=== PATIENT | male | born 1960 | race Caucasian/White ===

== ENCOUNTER 2020-02-24 12:03 | Inpatient (IN) | payer BC ==
[~2020-02-24] VITALS: Ht 170.2 cm; Wt 138.7 kg
[~2020-02-24 12:03] MED LIST: LIDOCAINE PF 2%, 5ML ONE
--- NOTE | 2020-02-24 12:19 | NUR ---
PT XIANG IN BY EMS FOR NON HELAING DIABTETIC FOOT WOUND. PT STATES HE HAD A GLF FALL 2 MONTHS AGO AND CUT HIS FOOT AND THE WOUND HASNT HEALED. ON TUESDAY WENT TO [facility] AND WAS TOLD TO FOLLOW UP WITH WOUND CARE, WHICH HE HASNT DONE. PT WAS ALSO GIVEN KEFLEX AND DOXICLYCLINE. PT STATES THE WOUND HAS BEEN DRIANING PUS AND WAS HURTING TODAY SO HE CALLED 911. EKG COMPLETE - AFIB. PT IS RESTING IN [facility]. CONNECTED TO MONITORING EQUIPMENT
[2020-02-24] MEDS ORDERED: PIPERACILLIN/TAZO/PMX 3.375GM 50 ML ONE (12:23)
[2020-02-24] MEDS ORDERED: METOPROLOL 1 MG/ML, 5ML ONE (12:23)
[2020-02-24] MEDS ORDERED: SODIUM CHLORIDE FLUSH 10ML SYR IVF ONE (12:30)
[2020-02-24] MEDS ORDERED: METOPROLOL 1 MG/ML, 5ML IVPush ONE (12:30)
[2020-02-24] MEDS ORDERED: PIPERACILLIN/TAZO/PMX 3.375GM 50 ML IVPB ONE (12:30)
--- NOTE | 2020-02-24 12:49 | NUR ---
pt medicated per emar. abx infusing after bc x 2. pt tolerated well.
[2020-02-24 13:04] LABS: BASOPHILS # (AUTO) 0.05 x10^3/uL (0-0.1); BASOPHILS % (AUTO) 1 % (0-1); EOSINOPHILS # (AUTO) 0.77 x10^3/uL (0-0.4); EOSINOPHILS % (AUTO) 7 % (1-7); LYMPHOCYTES # (AUTO) 1.04 x10^3/uL (1-3.4); LYMPHOCYTES % (AUTO) 10 % (22-44); MD NO; MEAN CORPUSCULAR HEMOGLOBIN 29.8 pg (27.5-34.5); MEAN CORPUSCULAR HGB CONC 33.1 g/dL (33.2-36.2); MEAN PLATELET VOLUME 7.9 fL (7.4-10.4); MONOCYTES # (AUTO) 0.55 x10^3/uL (0.2-0.8); MONOCYTES % (AUTO) 5 % (2-9); NEUTROPHILS # (AUTO) 8.03 x10^3/uL (1.8-6.8); NEUTROPHILS % (AUTO) 77 % (42-75); PLATELET COUNT 281 x10^3/uL (130-400); RED BLOOD COUNT 4.22 x10^6/uL (4.38-5.82)
[2020-02-24] MEDS ORDERED: LISI-170 PO (13:07)
[2020-02-24] MEDS ORDERED: METO25TA35 PO (13:07)
[2020-02-24] MEDS ORDERED: LEVO175T5 PO (13:08)
[2020-02-24] MEDS ORDERED: FURO20TA3 PO (13:08)
[2020-02-24] MEDS ORDERED: METF500T17 PO (13:08)
[2020-02-24] MEDS ORDERED: RIVA20TA PO (13:09)
[2020-02-24] MEDS ORDERED: ATOR40TA78 PO (13:09)
[2020-02-24 13:14] LABS: ALANINE AMINOTRANSFERASE 18 U/L (12-78); ALBUMIN 2.9 g/dL (3.4-5.0); ANION GAP 9 mmol/L (5-15); CALCIUM 8.9 mg/dL (8.5-10.1); CHLORIDE 105 mmol/L (98-107); CREATININE 1.08 mg/dL (0.7-1.3)
[2020-02-24 13:24] LABS: ALKALINE PHOSPHATASE 114 U/L (45-117); BILIRUBIN,TOTAL 1.3 mg/dL (0.2-1.0); TOTAL PROTEIN 7.9 g/dL (6.4-8.2)
--- NOTE | 2020-02-24 14:02 | NUR ---
pt resting in [facility]. pt's aox4. resps even and unlabored. bp/spo2 monitors in place. call light within reach.
--- NOTE | 2020-02-24 14:18 | NUR ---
call manager ortho paged @[phone]
--- NOTE | 2020-02-24 14:31 | NUR ---
lien called back @[phone]
--- NOTE | 2020-02-24 15:29 | NUR ---
pt resting in [facility]. pt's aox4. resps even and unlabored. bp/spo2 monitors in place. call light within reach.
[2020-02-24] MEDS ORDERED: ONDANSETRON 2MG/ML, 2ML IVPush PRN (16:00)
[2020-02-24] MEDS: LACTATED RINGERS 1,000 ML IV SCH (16:00)
[2020-02-24] MEDS ORDERED: POLYETHYLENE GLYCOL 17 GM PACKET PO PRN (16:00)
[2020-02-24] MEDS ORDERED: VANCOMYCIN PER PHARMACY MC PRN (16:00)
--- NOTE | 2020-02-24 16:03 | NUR ---
hospitalistobtained culture from wound. this rn walked to lab for wound culture.
--- NOTE | 2020-02-24 16:32 | NUR ---
medication ordered from pharmacy at this time.
--- NOTE | 2020-02-24 16:42 | NUR ---
LR infusing at this time. pt tolerated well.
--- NOTE | 2020-02-24 16:51 | NUR ---
report given to rolando courtney. all questions answered.
[2020-02-24 17:25] VITALS: BP 147/79
[2020-02-24] MEDS ORDERED: VANCOMYCIN 2,500 MG in SODIUM CHLORIDE 0.9% 500 ML IV ONE (18:00)
[2020-02-24] MEDS ORDERED: PHARMACOKINETIC CONSULTATION MC ONE (18:00)
[2020-02-24] MEDS ORDERED: PHARMACOKINETIC MONITORING MC PRN (18:00)
[2020-02-24] MEDS: INSULIN LISPRO 100 UNITS/ML, PEN SQ-INSULIN SCH ×2 (18:06→21:52)
[2020-02-24 19:00] VITALS: BP 114/76
[2020-02-24] MEDS: ATORVASTATIN 40 MG TABLET PO SCH (21:51)
[2020-02-24] MEDS: METOPROLOL TARTRATE 100 MG TAB PO SCH (21:51)
[2020-02-24] MEDS: CEFEPIME 2 GM in DEXTROSE 5% 100 ML IV SCH (22:05)
[2020-02-25] VITALS (11 sets, daily range): BP systolic 103–130; BP diastolic 65–89
[2020-02-25] MEDS: LACTATED RINGERS 1,000 ML IV SCH
[2020-02-25] MEDS: CEFEPIME 2 GM in DEXTROSE 5% 100 ML IV SCH ×3 (05:46→22:04)
[2020-02-25 05:47] LABS: BASOPHILS % (AUTO) 1 % (0-1); EOSINOPHILS # (AUTO) 0.99 x10^3/uL (0-0.4); EOSINOPHILS % (AUTO) 13 % (1-7); LYMPHOCYTES # (AUTO) 1.41 x10^3/uL (1-3.4); LYMPHOCYTES % (AUTO) 18 % (22-44); MD NO; MEAN CORPUSCULAR HEMOGLOBIN 29.9 pg (27.5-34.5); MEAN CORPUSCULAR HGB CONC 33.4 g/dL (33.2-36.2); MEAN PLATELET VOLUME 8.2 fL (7.4-10.4); MONOCYTES # (AUTO) 0.42 x10^3/uL (0.2-0.8); MONOCYTES % (AUTO) 5 % (2-9); NEUTROPHILS # (AUTO) 4.92 x10^3/uL (1.8-6.8); NEUTROPHILS % (AUTO) 63 % (42-75); PLATELET COUNT 272 x10^3/uL (130-400); RED BLOOD COUNT 3.94 x10^6/uL (4.38-5.82); RED CELL DISTRIBUTION WIDTH 14.4 % (9.4-14.8)
[2020-02-25 05:49] LABS: ALBUMIN 2.5 g/dL (3.4-5.0); ANION GAP 8 mmol/L (5-15); CALCIUM 8.2 mg/dL (8.5-10.1); CHLORIDE 107 mmol/L (98-107)
[2020-02-25] MEDS: LEVOTHYROXINE 175 MCG TABLET PO SCH (06:00)
[2020-02-25 06:16] LABS: % IRON SATURATION 11 % (20-55); ALANINE AMINOTRANSFERASE 21 U/L (12-78); ALKALINE PHOSPHATASE 111 U/L (45-117); CREATININE 1.01 mg/dL (0.7-1.3); IRON LEVEL 31 mcg/dL (65-175); TOTAL IRON BINDING CAPACITY 278 mcg/dL (250-450); TOTAL PROTEIN 7.4 g/dL (6.4-8.2)
[2020-02-25] MEDS: INSULIN LISPRO 100 UNITS/ML, PEN SQ-INSULIN SCH ×4 (07:00→20:57)
[2020-02-25] MEDS ORDERED: ONDANSETRON 2MG/ML, 2ML IVPush PRN (07:30)
[2020-02-25] MEDS ORDERED: HYDROmorphone 1 MG/ML, 1ML INJ IVPush PRN (07:30)
[2020-02-25] MEDS ORDERED: PROMETHAZINE 25 MG/ML, 1ML IVPush PRN (07:30)
[2020-02-25] MEDS ORDERED: LABETALOL 5MG/ML, 20ML IV PRN (07:30)
[2020-02-25] MEDS ORDERED: hydrALAzine 20 MG/ML, 1ML IV PRN (07:30)
[2020-02-25] MEDS ORDERED: ACETAMINOPHEN 325 MG TABLET PO PRN (07:30)
[2020-02-25] MEDS ORDERED: OXYcodone 5 MG/5 ML ORAL.SOL UDC PO PRN (07:30)
[2020-02-25] MEDS ORDERED: PROMETHAZINE 25 MG SUPP PR PRN (07:30)
[2020-02-25] MEDS ORDERED: FENTANYL PF 100 MCG/2ML IV PRN (07:30)
[2020-02-25] MEDS ORDERED: FENTANYL PF 100 MCG/2ML ONE ×2 (07:34→09:01)
[2020-02-25] MEDS ORDERED: CEFAZOLIN 1,000 MG ONE (08:22)
[2020-02-25] MEDS ORDERED: DEXAMETHASONE 4 MG/ML, 1ML ONE (08:22)
[2020-02-25] MEDS ORDERED: PROPOFOL 10 MG/ML, 20ML ONE (08:22)
[2020-02-25] MEDS ORDERED: ONDANSETRON 2MG/ML, 2ML ONE (08:22)
[2020-02-25] MEDS ORDERED: LABETALOL 5MG/ML, 20ML ONE (08:45)
[2020-02-25] MEDS ORDERED: OXYcodone 5 MG/5 ML ORAL.SOL UDC ONE (09:04)
[2020-02-25] MEDS ORDERED: ACETAMINOPHEN 650 MG/20.3 ML UDC ONE (09:04)
[2020-02-25] MEDS: METOPROLOL TARTRATE 100 MG TAB PO SCH ×3 (09:45→20:55)
[2020-02-25] MEDS: SENNA/DOCUSATE TABLET PO SCH (09:45)
[2020-02-25] MEDS: VANCOMYCIN 2,000 MG in SODIUM CHLORIDE 0.9% 500 ML IV SCH (12:19)
[2020-02-25] MEDS: ATORVASTATIN 40 MG TABLET PO SCH (20:55)
[2020-02-26 02:26] VITALS: BP 140/82
[2020-02-26] MEDS: morphine SULFATE 10 MG/ML, 1ML IVPush PRN ×2 (05:39→09:51)
[2020-02-26 05:50] LABS: ANION GAP 7 mmol/L (5-15); CALCIUM 8.2 mg/dL (8.5-10.1); CHLORIDE 107 mmol/L (98-107)
[2020-02-26] MEDS: LEVOTHYROXINE 175 MCG TABLET PO SCH (06:00)
[2020-02-26 06:09] LABS: MEAN CORPUSCULAR HGB CONC 33.6 g/dL (33.2-36.2); RED BLOOD COUNT 3.68 x10^6/uL (4.38-5.82); RED CELL DISTRIBUTION WIDTH 14.5 % (9.4-14.8)
[2020-02-26] MEDS: INSULIN LISPRO 100 UNITS/ML, PEN SQ-INSULIN SCH ×4 (07:00→21:18)
[2020-02-26 07:12] LABS: BASOPHILS # (AUTO) 0.08 x10^3/uL (0-0.1); BASOPHILS % (AUTO) 1 % (0-1); EOSINOPHILS # (AUTO) 1.11 x10^3/uL (0-0.4); EOSINOPHILS % (AUTO) 15 % (1-7); LYMPHOCYTES # (AUTO) 1.29 x10^3/uL (1-3.4); LYMPHOCYTES % (AUTO) 17 % (22-44); MD SCAN; MEAN PLATELET VOLUME 8.3 fL (7.4-10.4); MONOCYTES % (AUTO) 7 % (2-9); NEUTROPHILS # (AUTO) 4.57 x10^3/uL (1.8-6.8); NEUTROPHILS % (AUTO) 61 % (42-75); PLATELET COUNT 274 x10^3/uL (130-400)
[2020-02-26] MEDS: SENNA/DOCUSATE TABLET PO SCH (07:35)
[2020-02-26] MEDS: METOPROLOL TARTRATE 100 MG TAB PO SCH ×3 (07:36→21:17)
[2020-02-26] MEDS: VANCOMYCIN 2,000 MG in SODIUM CHLORIDE 0.9% 500 ML IV SCH (07:43)
[2020-02-26 08:21] VITALS: BP 125/78
[2020-02-26] MEDS ORDERED: GADOTERATE 10 MMOL/20 ML SYR ONE (11:48)
[2020-02-26] MEDS: CEFEPIME 2 GM in DEXTROSE 5% 100 ML IV SCH ×4 (12:08→21:48)
[2020-02-26] MEDS: ACETAMINOPHEN 325 MG TABLET PO PRN (12:19)
[2020-02-26] MEDS: LISINOPRIL 20 MG TABLET PO SCH (13:47)
[2020-02-26 14:49] VITALS: BP 123/79
[2020-02-26 19:49] VITALS: BP 123/79
[2020-02-26] MEDS: ATORVASTATIN 40 MG TABLET PO SCH (21:17)
[2020-02-27 00:39] VITALS: BP 101/67
[2020-02-27 04:54] LABS: BASOPHILS # (AUTO) 0.09 x10^3/uL (0-0.1); BASOPHILS % (AUTO) 1 % (0-1); EOSINOPHILS # (AUTO) 1.18 x10^3/uL (0-0.4); EOSINOPHILS % (AUTO) 14 % (1-7); LYMPHOCYTES % (AUTO) 16 % (22-44); MD NO; MEAN CORPUSCULAR HEMOGLOBIN 29.7 pg (27.5-34.5); MEAN CORPUSCULAR HGB CONC 32.9 g/dL (33.2-36.2); MEAN PLATELET VOLUME 7.6 fL (7.4-10.4); MONOCYTES # (AUTO) 0.49 x10^3/uL (0.2-0.8); MONOCYTES % (AUTO) 6 % (2-9); NEUTROPHILS # (AUTO) 5.38 x10^3/uL (1.8-6.8); NEUTROPHILS % (AUTO) 64 % (42-75); PLATELET COUNT 280 x10^3/uL (130-400); RED BLOOD COUNT 3.62 x10^6/uL (4.38-5.82); RED CELL DISTRIBUTION WIDTH 14.6 % (9.4-14.8)
[2020-02-27 04:58] LABS: HCT (SEDRATE) 32.6 % (39.2-51.8)
[2020-02-27 05:02] LABS: ANION GAP 7 mmol/L (5-15); CALCIUM 8.2 mg/dL (8.5-10.1); CHLORIDE 107 mmol/L (98-107)
[2020-02-27 05:11] LABS: CREATININE 0.89 mg/dL (0.7-1.3)
[2020-02-27] MEDS: LEVOTHYROXINE 175 MCG TABLET PO SCH (05:34)
[2020-02-27 06:57] VITALS: BP 120/68
[2020-02-27] MEDS: METOPROLOL TARTRATE 100 MG TAB PO SCH ×3 (07:51→20:52)
[2020-02-27] MEDS: INSULIN LISPRO 100 UNITS/ML, PEN SQ-INSULIN SCH ×4 (07:51→20:52)
[2020-02-27] MEDS: ASCORBIC ACID 500 MG TABLET PO SCH (07:52)
[2020-02-27] MEDS: SENNA/DOCUSATE TABLET PO SCH (07:52)
[2020-02-27] MEDS: LISINOPRIL 20 MG TABLET PO SCH (07:53)
[2020-02-27] MEDS: FERROUS SULFATE 325 MG TABLET PO SCH (07:53)
[2020-02-27] MEDS: CEFEPIME 2 GM in DEXTROSE 5% 100 ML IV SCH (11:03)
[2020-02-27] MEDS: morphine SULFATE 10 MG/ML, 1ML IVPush PRN ×2 (11:03→22:27)
[2020-02-27 13:25] VITALS: BP 118/68
[2020-02-27 16:05] VITALS: BP 137/88
[2020-02-27] MEDS: ACETAMINOPHEN 325 MG TABLET PO PRN ×2 (16:17→20:57)
[2020-02-27 19:09] VITALS: BP 104/68
[2020-02-27 20:50] VITALS: BP 124/79
[2020-02-27] MEDS: AMOXICILLIN/CLAV 875-125MG TABLET PO SCH (20:51)
[2020-02-27] MEDS: ATORVASTATIN 40 MG TABLET PO SCH (20:52)
[2020-02-28 03:15] VITALS: BP 126/80
[2020-02-28] MEDS: LEVOTHYROXINE 175 MCG TABLET PO SCH (06:00)
[2020-02-28] MEDS: LISINOPRIL 20 MG TABLET PO SCH (07:17)
[2020-02-28] MEDS: AMOXICILLIN/CLAV 875-125MG TABLET PO SCH ×2 (07:17→20:57)
[2020-02-28] MEDS: METOPROLOL TARTRATE 100 MG TAB PO SCH ×3 (07:17→20:57)
[2020-02-28] MEDS: INSULIN LISPRO 100 UNITS/ML, PEN SQ-INSULIN SCH ×4 (07:17→20:56)
[2020-02-28] MEDS: SENNA/DOCUSATE TABLET PO SCH (07:18)
[2020-02-28 08:23] VITALS: BP 112/74
[2020-02-28 13:26] VITALS: BP 122/76
[2020-02-28] MEDS: HYDROcodone/APAP 5/325 TABLET PO PRN (18:36)
[2020-02-28 20:39] VITALS: BP 109/69
[2020-02-28] MEDS: ATORVASTATIN 40 MG TABLET PO SCH (20:57)
[2020-02-29] MEDS: HYDROcodone/APAP 5/325 TABLET PO PRN ×3 (00:15→22:03)
[2020-02-29 00:35] VITALS: BP 128/77
[2020-02-29 05:53] LABS: BASOPHILS # (AUTO) 0.09 x10^3/uL (0-0.1); BASOPHILS % (AUTO) 1 % (0-1); EOSINOPHILS # (AUTO) 0.59 x10^3/uL (0-0.4); EOSINOPHILS % (AUTO) 6 % (1-7); LYMPHOCYTES # (AUTO) 1.01 x10^3/uL (1-3.4); LYMPHOCYTES % (AUTO) 11 % (22-44); MD NO; MEAN CORPUSCULAR HEMOGLOBIN 29.1 pg (27.5-34.5); MEAN CORPUSCULAR HGB CONC 32.6 g/dL (33.2-36.2); MEAN PLATELET VOLUME 7.4 fL (7.4-10.4); MONOCYTES # (AUTO) 0.46 x10^3/uL (0.2-0.8); MONOCYTES % (AUTO) 5 % (2-9); NEUTROPHILS # (AUTO) 7.01 x10^3/uL (1.8-6.8); NEUTROPHILS % (AUTO) 77 % (42-75); PLATELET COUNT 291 x10^3/uL (130-400); RED BLOOD COUNT 3.57 x10^6/uL (4.38-5.82); RED CELL DISTRIBUTION WIDTH 14.5 % (9.4-14.8)
[2020-02-29] MEDS: LEVOTHYROXINE 175 MCG TABLET PO SCH (06:04)
[2020-02-29 06:05] LABS: ANION GAP 7 mmol/L (5-15); CALCIUM 8.5 mg/dL (8.5-10.1); CHLORIDE 106 mmol/L (98-107)
[2020-02-29 06:15] LABS: CREATININE 0.84 mg/dL (0.7-1.3)
[2020-02-29 06:23] LABS: C-REACTIVE PROTEIN, QUANT > 19.00 mg/dL (0.02-0.49)
[2020-02-29 06:38] LABS: HCT (SEDRATE) 31.9 % (39.2-51.8)
[2020-02-29 06:42] VITALS: BP 122/74
[2020-02-29] MEDS: INSULIN LISPRO 100 UNITS/ML, PEN SQ-INSULIN SCH ×4 (08:18→20:24)
[2020-02-29] MEDS: LISINOPRIL 20 MG TABLET PO SCH (08:19)
[2020-02-29] MEDS: AMOXICILLIN/CLAV 875-125MG TABLET PO SCH ×2 (08:19→20:24)
[2020-02-29] MEDS: SENNA/DOCUSATE TABLET PO SCH (08:19)
[2020-02-29] MEDS: ASCORBIC ACID 500 MG TABLET PO SCH (08:19)
[2020-02-29] MEDS: METOPROLOL TARTRATE 100 MG TAB PO SCH ×3 (08:19→20:25)
[2020-02-29] MEDS: FERROUS SULFATE 325 MG TABLET PO SCH (08:19)
[2020-02-29 12:47] VITALS: BP 105/64
[2020-02-29] MEDS: FUROSEMIDE 40 MG/4 ML IV SCH (16:25)
[2020-02-29] MEDS: RIVAROXABAN 20 MG TABLET PO SCH (16:25)
[2020-02-29] MEDS: POTASSIUM CHLORIDE 20 MEQ TAB.ER.PRT PO SCH (16:25)
[2020-02-29 16:28] VITALS: BP 138/79
[2020-02-29 18:29] VITALS: BP 101/66
[2020-02-29] MEDS: ATORVASTATIN 40 MG TABLET PO SCH (20:24)
[2020-03-01 00:05] VITALS: BP 114/74
[2020-03-01] MEDS: LEVOTHYROXINE 175 MCG TABLET PO SCH (05:31)
[2020-03-01] MEDS: ACETAMINOPHEN 325 MG TABLET PO PRN ×2 (05:31→17:01)
[2020-03-01 05:37] LABS: ANION GAP 7 mmol/L (5-15); CALCIUM 8.9 mg/dL (8.5-10.1); CHLORIDE 104 mmol/L (98-107); CREATININE 0.91 mg/dL (0.7-1.3)
[2020-03-01] MEDS: INSULIN LISPRO 100 UNITS/ML, PEN SQ-INSULIN SCH ×4 (07:00→21:00)
[2020-03-01 07:01] VITALS: BP 133/93
[2020-03-01] MEDS: LISINOPRIL 20 MG TABLET PO SCH (08:21)
[2020-03-01] MEDS: POTASSIUM CHLORIDE 20 MEQ TAB.ER.PRT PO SCH ×2 (08:22→17:02)
[2020-03-01] MEDS: METOPROLOL TARTRATE 100 MG TAB PO SCH ×3 (08:22→22:43)
[2020-03-01] MEDS: AMOXICILLIN/CLAV 875-125MG TABLET PO SCH ×2 (08:22→22:43)
[2020-03-01] MEDS: SENNA/DOCUSATE TABLET PO SCH (08:22)
[2020-03-01] MEDS: FUROSEMIDE 40 MG/4 ML IV SCH ×2 (08:23→17:02)
[2020-03-01 14:08] VITALS: BP 141/82
[2020-03-01 16:30] VITALS: BP 113/62
[2020-03-01] MEDS: RIVAROXABAN 20 MG TABLET PO SCH (17:04)
[2020-03-01 19:49] VITALS: BP 119/63
[2020-03-01] MEDS: ATORVASTATIN 40 MG TABLET PO SCH (22:43)
[2020-03-02 01:28] VITALS: BP 125/74
[2020-03-02] MEDS: LEVOTHYROXINE 175 MCG TABLET PO SCH (06:00)
[2020-03-02 08:02] VITALS: BP 119/77
[2020-03-02] MEDS: LISINOPRIL 20 MG TABLET PO SCH (08:36)
[2020-03-02] MEDS: POTASSIUM CHLORIDE 20 MEQ TAB.ER.PRT PO SCH ×2 (08:36→16:01)
[2020-03-02] MEDS: ASCORBIC ACID 500 MG TABLET PO SCH (08:36)
[2020-03-02] MEDS: SENNA/DOCUSATE TABLET PO SCH (08:36)
[2020-03-02] MEDS: FERROUS SULFATE 325 MG TABLET PO SCH (08:36)
[2020-03-02] MEDS: FUROSEMIDE 40 MG/4 ML IV SCH ×2 (08:36→16:01)
[2020-03-02] MEDS: AMOXICILLIN/CLAV 875-125MG TABLET PO SCH ×2 (08:37→20:38)
[2020-03-02] MEDS: INSULIN LISPRO 100 UNITS/ML, PEN SQ-INSULIN SCH ×4 (08:37→21:04)
[2020-03-02] MEDS: METOPROLOL TARTRATE 100 MG TAB PO SCH ×3 (08:39→22:53)
[2020-03-02 09:47] LABS: ANION GAP 9 mmol/L (5-15); CALCIUM 9.1 mg/dL (8.5-10.1); CHLORIDE 101 mmol/L (98-107)
[2020-03-02] MEDS: HYDROcodone/APAP 5/325 TABLET PO PRN (11:06)
[2020-03-02 14:22] VITALS: BP 94/64
[2020-03-02] MEDS: RIVAROXABAN 20 MG TABLET PO SCH (16:59)
[2020-03-02 18:09] VITALS: BP 95/48
[2020-03-02] MEDS: ATORVASTATIN 40 MG TABLET PO SCH (20:38)
[2020-03-02] MEDS: ACETAMINOPHEN 325 MG TABLET PO PRN (21:04)
[2020-03-02 21:07] VITALS: BP 101/70
[2020-03-02 22:50] VITALS: BP 139/98
[2020-03-03 00:31] VITALS: BP 94/66
[2020-03-03] MEDS: LEVOTHYROXINE 175 MCG TABLET PO SCH (06:00)
[2020-03-03 07:21] VITALS: BP 121/72
[2020-03-03] MEDS: LISINOPRIL 20 MG TABLET PO SCH ×2 (07:53→09:00)
[2020-03-03] MEDS: SENNA/DOCUSATE TABLET PO SCH (07:53)
[2020-03-03] MEDS: AMOXICILLIN/CLAV 875-125MG TABLET PO SCH ×2 (07:53→20:58)
[2020-03-03] MEDS: POTASSIUM CHLORIDE 20 MEQ TAB.ER.PRT PO SCH ×2 (07:53→15:32)
[2020-03-03] MEDS: METOPROLOL TARTRATE 100 MG TAB PO SCH ×4 (07:54→20:58)
[2020-03-03] MEDS: FUROSEMIDE 40 MG TABLET PO SCH (07:54)
[2020-03-03] MEDS: INSULIN LISPRO 100 UNITS/ML, PEN SQ-INSULIN SCH ×4 (08:43→20:58)
[2020-03-03 09:13] LABS: ANION GAP 10 mmol/L (5-15); CALCIUM 9.5 mg/dL (8.5-10.1); CHLORIDE 101 mmol/L (98-107); CREATININE 1.02 mg/dL (0.7-1.3)
[2020-03-03] MEDS: HYDROcodone/APAP 5/325 TABLET PO PRN (10:50)
[2020-03-03 12:30] VITALS: BP 92/65
[2020-03-03] MEDS: RIVAROXABAN 20 MG TABLET PO SCH (15:42)
[2020-03-03 18:22] VITALS: BP 103/67
[2020-03-03] MEDS: ACETAMINOPHEN 325 MG TABLET PO PRN (20:58)
[2020-03-03] MEDS: ATORVASTATIN 40 MG TABLET PO SCH (20:59)
[2020-03-04 01:58] VITALS: BP 113/54
[2020-03-04] MEDS: LEVOTHYROXINE 175 MCG TABLET PO SCH (06:00)
[2020-03-04 06:47] VITALS: BP 111/71
[2020-03-04] MEDS: ASCORBIC ACID 500 MG TABLET PO SCH (08:01)
[2020-03-04] MEDS: SENNA/DOCUSATE TABLET PO SCH (08:01)
[2020-03-04] MEDS: AMOXICILLIN/CLAV 875-125MG TABLET PO SCH ×2 (08:01→21:35)
[2020-03-04] MEDS: METOPROLOL TARTRATE 100 MG TAB PO SCH ×3 (08:01→21:35)
[2020-03-04] MEDS: POTASSIUM CHLORIDE 20 MEQ TAB.ER.PRT PO SCH ×2 (08:02→16:07)
[2020-03-04] MEDS: FERROUS SULFATE 325 MG TABLET PO SCH (08:02)
[2020-03-04] MEDS: FUROSEMIDE 40 MG TABLET PO SCH (08:02)
[2020-03-04] MEDS: LISINOPRIL 20 MG TABLET PO SCH (08:02)
[2020-03-04] MEDS: INSULIN LISPRO 100 UNITS/ML, PEN SQ-INSULIN SCH ×5 (08:17→21:36)
[2020-03-04] MEDS: HYDROcodone/APAP 5/325 TABLET PO PRN (11:09)
[2020-03-04] MEDS: RIVAROXABAN 20 MG TABLET PO SCH (16:07)
[2020-03-04] MEDS: ACETAMINOPHEN 325 MG TABLET PO PRN (16:15)
[2020-03-04 16:21] VITALS: BP 106/46
[2020-03-04 19:40] VITALS: BP 104/68
[2020-03-04] MEDS: ATORVASTATIN 40 MG TABLET PO SCH (21:35)
[2020-03-04] MEDS: INSULIN GLARGINE 100 UNITS/ML, PEN SQ-INSULIN SCH (21:36)
[2020-03-05 01:31] VITALS: BP 103/64
[2020-03-05] MEDS: LEVOTHYROXINE 175 MCG TABLET PO SCH (05:19)
[2020-03-05 06:19] LABS: ALBUMIN 2.5 g/dL (3.4-5.0); ANION GAP 9 mmol/L (5-15); CALCIUM 9.8 mg/dL (8.5-10.1); CHLORIDE 103 mmol/L (98-107)
[2020-03-05 06:23] LABS: ALANINE AMINOTRANSFERASE 34 U/L (12-78); ALKALINE PHOSPHATASE 127 U/L (45-117); BILIRUBIN,TOTAL 0.9 mg/dL (0.2-1.0); TOTAL PROTEIN 8.8 g/dL (6.4-8.2)
[2020-03-05 08:16] VITALS: BP 116/72
[2020-03-05] MEDS: LISINOPRIL 20 MG TABLET PO SCH (08:27)
[2020-03-05] MEDS: POTASSIUM CHLORIDE 20 MEQ TAB.ER.PRT PO SCH ×2 (08:27→17:24)
[2020-03-05] MEDS: SENNA/DOCUSATE TABLET PO SCH (08:28)
[2020-03-05] MEDS: AMOXICILLIN/CLAV 875-125MG TABLET PO SCH ×2 (08:28→20:43)
[2020-03-05] MEDS: METOPROLOL TARTRATE 100 MG TAB PO SCH ×3 (08:28→20:44)
[2020-03-05] MEDS: FUROSEMIDE 40 MG TABLET PO SCH (08:28)
[2020-03-05] MEDS: INSULIN LISPRO 100 UNITS/ML, PEN SQ-INSULIN SCH ×4 (08:29→20:52)
[2020-03-05] MEDS: HYDROcodone/APAP 5/325 TABLET PO PRN (10:18)
[2020-03-05 13:22] VITALS: BP 99/65
[2020-03-05 17:25] VITALS: BP 99/62
[2020-03-05] MEDS: RIVAROXABAN 20 MG TABLET PO SCH (17:25)
[2020-03-05 20:14] VITALS: BP 112/72
[2020-03-05] MEDS: ATORVASTATIN 40 MG TABLET PO SCH (20:44)
[2020-03-05] MEDS: INSULIN GLARGINE 100 UNITS/ML, PEN SQ-INSULIN SCH (20:51)
[2020-03-06 01:56] VITALS: BP 112/72
[2020-03-06] MEDS: LEVOTHYROXINE 175 MCG TABLET PO SCH (06:35)
[2020-03-06] MEDS: AMOXICILLIN/CLAV 875-125MG TABLET PO SCH ×2 (07:51→21:28)
[2020-03-06] MEDS: METOPROLOL TARTRATE 100 MG TAB PO SCH ×3 (07:51→21:27)
[2020-03-06] MEDS: LISINOPRIL 20 MG TABLET PO SCH (07:51)
[2020-03-06] MEDS: FERROUS SULFATE 325 MG TABLET PO SCH (07:51)
[2020-03-06] MEDS: POTASSIUM CHLORIDE 20 MEQ TAB.ER.PRT PO SCH ×2 (07:52→16:26)
[2020-03-06] MEDS: FUROSEMIDE 40 MG TABLET PO SCH (07:52)
[2020-03-06] MEDS: ASCORBIC ACID 500 MG TABLET PO SCH (07:52)
[2020-03-06] MEDS: INSULIN LISPRO 100 UNITS/ML, PEN SQ-INSULIN SCH ×4 (07:53→21:35)
[2020-03-06] MEDS: SENNA/DOCUSATE TABLET PO SCH (09:00)
[2020-03-06 09:21] VITALS: BP 100/59
[2020-03-06] MEDS: HYDROcodone/APAP 5/325 TABLET PO PRN (13:47)
[2020-03-06 15:08] VITALS: BP 89/58
[2020-03-06] MEDS: RIVAROXABAN 20 MG TABLET PO SCH (16:26)
[2020-03-06 18:55] VITALS: BP 102/63
[2020-03-06] MEDS: ATORVASTATIN 40 MG TABLET PO SCH (21:26)
[2020-03-06] MEDS: INSULIN GLARGINE 100 UNITS/ML, PEN SQ-INSULIN SCH (21:36)
[2020-03-07 00:49] VITALS: BP 97/60
[2020-03-07] MEDS ORDERED: PROMETHAZINE 25 MG/ML, 1ML IM PRN (05:00)
[2020-03-07] MEDS: LEVOTHYROXINE 175 MCG TABLET PO SCH (05:32)
[2020-03-07 07:26] VITALS: BP 113/61
[2020-03-07] MEDS: SENNA/DOCUSATE TABLET PO SCH (08:29)
[2020-03-07] MEDS: AMOXICILLIN/CLAV 875-125MG TABLET PO SCH ×2 (08:29→20:03)
[2020-03-07] MEDS: LISINOPRIL 20 MG TABLET PO SCH (08:29)
[2020-03-07] MEDS: POTASSIUM CHLORIDE 20 MEQ TAB.ER.PRT PO SCH ×2 (08:29→17:50)
[2020-03-07] MEDS: METOPROLOL TARTRATE 100 MG TAB PO SCH ×3 (08:30→20:04)
[2020-03-07] MEDS: FUROSEMIDE 40 MG TABLET PO SCH (08:34)
[2020-03-07] MEDS: INSULIN LISPRO 100 UNITS/ML, PEN SQ-INSULIN SCH ×4 (08:34→20:04)
[2020-03-07] MEDS: HYDROcodone/APAP 5/325 TABLET PO PRN (10:35)
[2020-03-07] MEDS: HYDROCORTISONE OINT 1%, 28GM TP SCH ×2 (11:47→20:03)
[2020-03-07 13:09] VITALS: BP 104/70
[2020-03-07] MEDS: RIVAROXABAN 20 MG TABLET PO SCH (17:50)
[2020-03-07 18:33] VITALS: BP 105/65
[2020-03-07] MEDS: ATORVASTATIN 40 MG TABLET PO SCH (20:03)
[2020-03-07] MEDS: INSULIN GLARGINE 100 UNITS/ML, PEN SQ-INSULIN SCH (20:07)
[2020-03-08 00:45] VITALS: BP 98/63
[2020-03-08] MEDS: ACETAMINOPHEN 325 MG TABLET PO PRN ×4 (04:20→23:42)
[2020-03-08] MEDS: LEVOTHYROXINE 175 MCG TABLET PO SCH (05:25)
[2020-03-08 07:30] VITALS: BP 110/69
[2020-03-08] MEDS: FERROUS SULFATE 325 MG TABLET PO SCH (08:36)
[2020-03-08] MEDS: FUROSEMIDE 40 MG TABLET PO SCH (08:36)
[2020-03-08] MEDS: LISINOPRIL 20 MG TABLET PO SCH (08:37)
[2020-03-08] MEDS: ASCORBIC ACID 500 MG TABLET PO SCH (08:37)
[2020-03-08] MEDS: SENNA/DOCUSATE TABLET PO SCH ×2 (08:37→08:39)
[2020-03-08] MEDS: AMOXICILLIN/CLAV 875-125MG TABLET PO SCH (08:37)
[2020-03-08] MEDS: POTASSIUM CHLORIDE 20 MEQ TAB.ER.PRT PO SCH ×2 (08:37→16:25)
[2020-03-08] MEDS: METOPROLOL TARTRATE 100 MG TAB PO SCH ×3 (08:37→19:58)
[2020-03-08] MEDS: INSULIN LISPRO 100 UNITS/ML, PEN SQ-INSULIN SCH ×4 (08:38→20:00)
[2020-03-08] MEDS: HYDROCORTISONE OINT 1%, 28GM TP SCH ×2 (08:46→19:58)
[2020-03-08 13:59] VITALS: BP 102/41
[2020-03-08] MEDS: RIVAROXABAN 20 MG TABLET PO SCH (17:12)
[2020-03-08 18:36] VITALS: BP 110/74
[2020-03-08] MEDS: ATORVASTATIN 40 MG TABLET PO SCH (19:58)
[2020-03-08] MEDS: INSULIN GLARGINE 100 UNITS/ML, PEN SQ-INSULIN SCH (20:00)
[2020-03-09 00:34] VITALS: BP 98/56
[2020-03-09] MEDS: LEVOTHYROXINE 175 MCG TABLET PO SCH (05:19)
[2020-03-09 06:48] VITALS: BP 120/71
[2020-03-09] MEDS: HYDROCORTISONE OINT 1%, 28GM TP SCH ×2 (08:07→23:09)
[2020-03-09] MEDS: POTASSIUM CHLORIDE 20 MEQ TAB.ER.PRT PO SCH ×2 (08:08→17:00)
[2020-03-09] MEDS: SENNA/DOCUSATE TABLET PO SCH ×2 (08:08→08:10)
[2020-03-09] MEDS: FUROSEMIDE 40 MG TABLET PO SCH (08:08)
[2020-03-09] MEDS: METOPROLOL TARTRATE 100 MG TAB PO SCH ×3 (08:09→23:03)
[2020-03-09] MEDS: LISINOPRIL 20 MG TABLET PO SCH (08:09)
[2020-03-09] MEDS: INSULIN LISPRO 100 UNITS/ML, PEN SQ-INSULIN SCH ×4 (08:10→21:00)
[2020-03-09] MEDS: HYDROcodone/APAP 5/325 TABLET PO PRN ×2 (08:37→16:22)
[2020-03-09 12:23] VITALS: BP 115/69
[2020-03-09] MEDS: CYCLOBENZAPRINE 10 MG TABLET PO PRN (14:52)
[2020-03-09] MEDS: RIVAROXABAN 20 MG TABLET PO SCH (16:22)
[2020-03-09 17:06] LABS: ALANINE AMINOTRANSFERASE 23 U/L (12-78); ALBUMIN 2.7 g/dL (3.4-5.0); ANION GAP 9 mmol/L (5-15); CHLORIDE 107 mmol/L (98-107); CREATININE 1.37 mg/dL (0.7-1.3)
[2020-03-09 17:07] LABS: ALKALINE PHOSPHATASE 111 U/L (45-117); BILIRUBIN,TOTAL 0.8 mg/dL (0.2-1.0); TOTAL PROTEIN 9.2 g/dL (6.4-8.2)
[2020-03-09] MEDS ORDERED: SODIUM CHLORIDE 0.9%, 500ML IVBOLUS ONE (17:30)
[2020-03-09 19:28] VITALS: BP 114/74
[2020-03-09 23:00] VITALS: BP 124/76
[2020-03-09] MEDS: INSULIN GLARGINE 100 UNITS/ML, PEN SQ-INSULIN SCH (23:03)
[2020-03-09] MEDS: ATORVASTATIN 40 MG TABLET PO SCH (23:03)
[2020-03-10 01:35] VITALS: BP 114/64
[2020-03-10 05:08] LABS: BASOPHILS # (AUTO) 0.09 x10^3/uL (0-0.1); BASOPHILS % (AUTO) 1 % (0-1); EOSINOPHILS # (AUTO) 0.95 x10^3/uL (0-0.4); EOSINOPHILS % (AUTO) 10 % (1-7); LYMPHOCYTES # (AUTO) 1.78 x10^3/uL (1-3.4); LYMPHOCYTES % (AUTO) 19 % (22-44); MD NO; MEAN CORPUSCULAR HEMOGLOBIN 28.8 pg (27.5-34.5); MEAN CORPUSCULAR HGB CONC 32.4 g/dL (33.2-36.2); MEAN PLATELET VOLUME 8.1 fL (7.4-10.4); MONOCYTES # (AUTO) 0.56 x10^3/uL (0.2-0.8); MONOCYTES % (AUTO) 6 % (2-9); NEUTROPHILS # (AUTO) 5.87 x10^3/uL (1.8-6.8); NEUTROPHILS % (AUTO) 64 % (42-75); PLATELET COUNT 439 x10^3/uL (130-400); RED BLOOD COUNT 3.96 x10^6/uL (4.38-5.82); RED CELL DISTRIBUTION WIDTH 15.6 % (9.4-14.8)
[2020-03-10 05:23] LABS: ANION GAP 10 mmol/L (5-15); CALCIUM 10.1 mg/dL (8.5-10.1); CHLORIDE 107 mmol/L (98-107); CREATININE 1.32 mg/dL (0.7-1.3)
[2020-03-10] MEDS: LEVOTHYROXINE 175 MCG TABLET PO SCH (05:29)
[2020-03-10 07:29] VITALS: BP 103/64
[2020-03-10] MEDS: INSULIN LISPRO 100 UNITS/ML, PEN SQ-INSULIN SCH ×4 (08:13→22:10)
[2020-03-10] MEDS: HYDROCORTISONE OINT 1%, 28GM TP SCH ×2 (08:13→22:15)
[2020-03-10] MEDS: FERROUS SULFATE 325 MG TABLET PO SCH (08:13)
[2020-03-10] MEDS: ASCORBIC ACID 500 MG TABLET PO SCH (08:14)
[2020-03-10] MEDS: FUROSEMIDE 40 MG TABLET PO SCH (08:14)
[2020-03-10] MEDS: CYCLOBENZAPRINE 10 MG TABLET PO PRN ×2 (08:14→16:43)
[2020-03-10] MEDS: HYDROcodone/APAP 5/325 TABLET PO PRN (08:14)
[2020-03-10] MEDS: SENNA/DOCUSATE TABLET PO SCH (08:15)
[2020-03-10] MEDS: METOPROLOL TARTRATE 100 MG TAB PO SCH ×3 (08:16→22:14)
[2020-03-10 14:45] VITALS: BP 123/72
[2020-03-10] MEDS: ACETAMINOPHEN 325 MG TABLET PO PRN (16:43)
[2020-03-10] MEDS: RIVAROXABAN 20 MG TABLET PO SCH (16:43)
[2020-03-10 19:15] VITALS: BP 115/74
[2020-03-10 22:05] VITALS: BP 117/81
[2020-03-10] MEDS: INSULIN GLARGINE 100 UNITS/ML, PEN SQ-INSULIN SCH (22:12)
[2020-03-10] MEDS: ATORVASTATIN 40 MG TABLET PO SCH (22:14)
[2020-03-11 00:30] VITALS: BP 121/70
[2020-03-11 05:06] LABS: CHLORIDE 105 mmol/L (98-107)
[2020-03-11 05:13] LABS: ANION GAP 9 mmol/L (5-15); CREATININE 1.27 mg/dL (0.7-1.3)
[2020-03-11] MEDS: LEVOTHYROXINE 175 MCG TABLET PO SCH (05:57)
[2020-03-11] MEDS: INSULIN LISPRO 100 UNITS/ML, PEN SQ-INSULIN SCH ×4 (07:00→21:30)
[2020-03-11 07:42] VITALS: BP 116/74
[2020-03-11] MEDS: FUROSEMIDE 20 MG TABLET PO SCH (09:36)
[2020-03-11] MEDS: SENNA/DOCUSATE TABLET PO SCH (09:37)
[2020-03-11] MEDS: METOPROLOL TARTRATE 100 MG TAB PO SCH ×3 (09:37→19:55)
[2020-03-11] MEDS: HYDROCORTISONE OINT 1%, 28GM TP SCH (09:40)
[2020-03-11 13:20] VITALS: BP 111/70
[2020-03-11] MEDS: RIVAROXABAN 20 MG TABLET PO SCH (15:49)
[2020-03-11 18:25] VITALS: BP 101/63
[2020-03-11] MEDS: COLCHICINE 0.6 MG CAPSULE PO SCH (19:55)
[2020-03-11] MEDS: ATORVASTATIN 40 MG TABLET PO SCH (19:55)
[2020-03-11] MEDS: HYDROCORTISONE CRM 1%, 30GM TP SCH (19:56)
[2020-03-11] MEDS: INSULIN GLARGINE 100 UNITS/ML, PEN SQ-INSULIN SCH (21:30)
[2020-03-11] MEDS: CYCLOBENZAPRINE 10 MG TABLET PO PRN (21:32)
[2020-03-12 00:28] VITALS: BP 99/57
[2020-03-12] MEDS: LEVOTHYROXINE 175 MCG TABLET PO SCH (05:31)
[2020-03-12 07:06] VITALS: BP 103/66
[2020-03-12] MEDS: METOPROLOL TARTRATE 100 MG TAB PO SCH ×3 (07:52→21:31)
[2020-03-12] MEDS: COLCHICINE 0.6 MG CAPSULE PO SCH ×2 (07:52→21:31)
[2020-03-12] MEDS: FUROSEMIDE 20 MG TABLET PO SCH (07:52)
[2020-03-12] MEDS: FERROUS SULFATE 325 MG TABLET PO SCH (07:52)
[2020-03-12] MEDS: SENNA/DOCUSATE TABLET PO SCH (07:52)
[2020-03-12] MEDS: ASCORBIC ACID 500 MG TABLET PO SCH (07:52)
[2020-03-12] MEDS: INSULIN LISPRO 100 UNITS/ML, PEN SQ-INSULIN SCH ×4 (08:01→22:30)
[2020-03-12] MEDS: HYDROCORTISONE CRM 1%, 30GM TP SCH ×2 (08:01→21:31)
[2020-03-12 13:38] VITALS: BP 123/77
[2020-03-12] MEDS: RIVAROXABAN 20 MG TABLET PO SCH (16:36)
[2020-03-12 19:52] VITALS: BP 122/75
[2020-03-12] MEDS: CYCLOBENZAPRINE 10 MG TABLET PO PRN (21:31)
[2020-03-12] MEDS: ATORVASTATIN 40 MG TABLET PO SCH (21:31)
[2020-03-12] MEDS: INSULIN GLARGINE 100 UNITS/ML, PEN SQ-INSULIN SCH (22:31)
[2020-03-13 00:50] VITALS: BP 113/68
[2020-03-13] MEDS: LEVOTHYROXINE 175 MCG TABLET PO SCH (05:37)
[2020-03-13] MEDS: INSULIN LISPRO 100 UNITS/ML, PEN SQ-INSULIN SCH ×4 (07:57→21:12)
[2020-03-13] MEDS: HYDROCORTISONE CRM 1%, 30GM TP SCH ×2 (07:58→21:11)
[2020-03-13] MEDS: METOPROLOL TARTRATE 100 MG TAB PO SCH ×3 (07:58→19:49)
[2020-03-13] MEDS: SENNA/DOCUSATE TABLET PO SCH (07:58)
[2020-03-13] MEDS: FUROSEMIDE 20 MG TABLET PO SCH (07:58)
[2020-03-13] MEDS: COLCHICINE 0.6 MG CAPSULE PO SCH ×2 (07:59→19:49)
[2020-03-13 09:38] VITALS: BP 107/71
[2020-03-13 13:53] VITALS: BP 130/83
[2020-03-13] MEDS: ACETAMINOPHEN 325 MG TABLET PO PRN (15:59)
[2020-03-13] MEDS: RIVAROXABAN 20 MG TABLET PO SCH (16:17)
[2020-03-13 19:33] VITALS: BP 102/66
[2020-03-13] MEDS: NYSTATIN TOPICAL POWDER 15GM TP SCH (19:48)
[2020-03-13] MEDS: CYCLOBENZAPRINE 10 MG TABLET PO PRN (19:48)
[2020-03-13] MEDS: ATORVASTATIN 40 MG TABLET PO SCH (19:49)
[2020-03-13] MEDS: INSULIN GLARGINE 100 UNITS/ML, PEN SQ-INSULIN SCH (21:12)
[2020-03-14 02:22] VITALS: BP 94/58
[2020-03-14 04:56] LABS: MEAN CORPUSCULAR HEMOGLOBIN 28.3 pg (27.5-34.5); MEAN PLATELET VOLUME 7.5 fL (7.4-10.4); PLATELET COUNT 494 x10^3/uL (130-400); RED CELL DISTRIBUTION WIDTH 16.2 % (9.4-14.8)
[2020-03-14 05:02] LABS: ANION GAP 11 mmol/L (5-15); CHLORIDE 104 mmol/L (98-107); CREATININE 2.38 mg/dL (0.7-1.3)
[2020-03-14] MEDS: LEVOTHYROXINE 175 MCG TABLET PO SCH (05:23)
[2020-03-14 05:33] LABS: BASOPHILS # (AUTO) 0.17 x10^3/uL (0-0.1); BASOPHILS % (AUTO) 2 % (0-1); EOSINOPHILS # (AUTO) 0.69 x10^3/uL (0-0.4); EOSINOPHILS % (AUTO) 6 % (1-7); LYMPHOCYTES # (AUTO) 1.78 x10^3/uL (1-3.4); LYMPHOCYTES % (AUTO) 16 % (22-44); MD SCAN; MONOCYTES # (AUTO) 0.67 x10^3/uL (0.2-0.8); MONOCYTES % (AUTO) 6 % (2-9); NEUTROPHILS # (AUTO) 7.74 x10^3/uL (1.8-6.8); NEUTROPHILS % (AUTO) 70 % (42-75)
[2020-03-14 06:34] VITALS: BP 97/64
[2020-03-14 08:49] VITALS: BP 139/80
[2020-03-14] MEDS: INSULIN LISPRO 100 UNITS/ML, PEN SQ-INSULIN SCH ×4 (08:50→20:47)
[2020-03-14] MEDS: ASCORBIC ACID 500 MG TABLET PO SCH (08:51)
[2020-03-14] MEDS: COLCHICINE 0.6 MG CAPSULE PO SCH ×2 (08:51→20:46)
[2020-03-14] MEDS: HYDROCORTISONE CRM 1%, 30GM TP SCH ×2 (08:52→20:47)
[2020-03-14] MEDS: FERROUS SULFATE 325 MG TABLET PO SCH (08:52)
[2020-03-14] MEDS: METOPROLOL TARTRATE 100 MG TAB PO SCH ×3 (08:52→20:46)
[2020-03-14] MEDS: NYSTATIN TOPICAL POWDER 15GM TP SCH ×2 (08:52→20:47)
[2020-03-14] MEDS: SENNA/DOCUSATE TABLET PO SCH (08:52)
[2020-03-14] MEDS: FUROSEMIDE 20 MG TABLET PO SCH (08:52)
[2020-03-14 14:21] VITALS: BP 98/61
[2020-03-14 16:42] VITALS: BP 101/65
[2020-03-14] MEDS: RIVAROXABAN 20 MG TABLET PO SCH (17:00)
[2020-03-14 20:05] VITALS: BP 113/65
[2020-03-14] MEDS: ATORVASTATIN 40 MG TABLET PO SCH (20:46)
[2020-03-14] MEDS: INSULIN GLARGINE 100 UNITS/ML, PEN SQ-INSULIN SCH (20:47)
[2020-03-15 00:17] LABS: MICROSCOPIC NOT IND
[2020-03-15 02:00] VITALS: BP 96/69
[2020-03-15 05:32] LABS: BASOPHILS # (AUTO) 0.14 x10^3/uL (0-0.1); BASOPHILS % (AUTO) 1 % (0-1); EOSINOPHILS # (AUTO) 1.08 x10^3/uL (0-0.4); EOSINOPHILS % (AUTO) 11 % (1-7); LYMPHOCYTES # (AUTO) 2.27 x10^3/uL (1-3.4); LYMPHOCYTES % (AUTO) 23 % (22-44); MD NO; MEAN CORPUSCULAR HEMOGLOBIN 28.9 pg (27.5-34.5); MEAN CORPUSCULAR HGB CONC 32.7 g/dL (33.2-36.2); MEAN PLATELET VOLUME 7.8 fL (7.4-10.4); MONOCYTES # (AUTO) 0.71 x10^3/uL (0.2-0.8); MONOCYTES % (AUTO) 7 % (2-9); NEUTROPHILS % (AUTO) 57 % (42-75); PLATELET COUNT 478 x10^3/uL (130-400); RED BLOOD COUNT 4.11 x10^6/uL (4.38-5.82); RED CELL DISTRIBUTION WIDTH 16.1 % (9.4-14.8)
[2020-03-15 05:51] LABS: ANION GAP 12 mmol/L (5-15); CALCIUM 9.9 mg/dL (8.5-10.1); CHLORIDE 105 mmol/L (98-107)
[2020-03-15 05:52] LABS: CREATININE 1.97 mg/dL (0.7-1.3)
[2020-03-15] MEDS: LEVOTHYROXINE 175 MCG TABLET PO SCH (06:02)
[2020-03-15 07:31] VITALS: BP 110/73
[2020-03-15] MEDS: COLCHICINE 0.6 MG CAPSULE PO SCH ×2 (08:09→20:30)
[2020-03-15] MEDS: METOPROLOL TARTRATE 100 MG TAB PO SCH ×3 (08:09→20:30)
[2020-03-15] MEDS: SENNA/DOCUSATE TABLET PO SCH (08:10)
[2020-03-15] MEDS: INSULIN LISPRO 100 UNITS/ML, PEN SQ-INSULIN SCH ×4 (08:10→20:32)
[2020-03-15] MEDS: NYSTATIN TOPICAL POWDER 15GM TP SCH ×2 (08:11→20:31)
[2020-03-15] MEDS: HYDROCORTISONE CRM 1%, 30GM TP SCH ×2 (08:11→20:31)
[2020-03-15] MEDS: TAMSULOSIN 0.4 MG CAP.ER.24H PO SCH (11:22)
[2020-03-15 12:46] VITALS: BP 96/60
[2020-03-15 16:54] VITALS: BP 89/56
[2020-03-15] MEDS: RIVAROXABAN 20 MG TABLET PO SCH (16:56)
[2020-03-15 19:11] VITALS: BP 104/69
[2020-03-15] MEDS: ATORVASTATIN 40 MG TABLET PO SCH (20:30)
[2020-03-15] MEDS: INSULIN GLARGINE 100 UNITS/ML, PEN SQ-INSULIN SCH (20:31)
[2020-03-16 00:24] VITALS: BP 95/60
[2020-03-16 05:45] LABS: ANION GAP 8 mmol/L (5-15); CALCIUM 9.8 mg/dL (8.5-10.1); CHLORIDE 106 mmol/L (98-107)
[2020-03-16 05:46] LABS: CREATININE 1.84 mg/dL (0.7-1.3)
[2020-03-16] MEDS: LEVOTHYROXINE 175 MCG TABLET PO SCH (05:59)
[2020-03-16 07:04] VITALS: BP 111/73
[2020-03-16] MEDS: TAMSULOSIN 0.4 MG CAP.ER.24H PO SCH (07:52)
[2020-03-16] MEDS: FERROUS SULFATE 325 MG TABLET PO SCH (07:52)
[2020-03-16] MEDS: METOPROLOL TARTRATE 100 MG TAB PO SCH ×3 (07:52→21:06)
[2020-03-16] MEDS: ASCORBIC ACID 500 MG TABLET PO SCH (07:52)
[2020-03-16] MEDS: COLCHICINE 0.6 MG CAPSULE PO SCH ×2 (07:52→20:40)
[2020-03-16] MEDS: SENNA/DOCUSATE TABLET PO SCH (07:53)
[2020-03-16] MEDS: NYSTATIN TOPICAL POWDER 15GM TP SCH ×2 (07:54→20:41)
[2020-03-16] MEDS: HYDROCORTISONE CRM 1%, 30GM TP SCH ×2 (07:54→20:41)
[2020-03-16] MEDS: INSULIN LISPRO 100 UNITS/ML, PEN SQ-INSULIN SCH ×4 (08:01→20:40)
[2020-03-16] MEDS: ACETAMINOPHEN 325 MG TABLET PO PRN (09:06)
[2020-03-16 12:21] VITALS: BP 96/60
[2020-03-16] MEDS ORDERED: DIGOXIN 0.25 MG/ML, 2ML IVPush ONE ×3 (13:30→19:30)
[2020-03-16] MEDS: SODIUM CHLORIDE 0.9% 1,000 ML IV SCH (16:30)
[2020-03-16] MEDS: RIVAROXABAN 20 MG TABLET PO SCH (17:38)
[2020-03-16 19:58] VITALS: BP 106/66
[2020-03-16] MEDS: ATORVASTATIN 40 MG TABLET PO SCH (20:40)
[2020-03-16] MEDS: INSULIN GLARGINE 100 UNITS/ML, PEN SQ-INSULIN SCH (20:41)
[2020-03-16 21:24] VITALS: BP 98/57
[2020-03-16 23:12] VITALS: BP 89/59
[2020-03-17] VITALS (10 sets, daily range): BP systolic 85–139; BP diastolic 58–90
[2020-03-17] MEDS ORDERED: DIGOXIN 0.25 MG/ML, 2ML IVPush ONE (01:30)
[2020-03-17] MEDS: SODIUM CHLORIDE 0.9% 1,000 ML IV SCH (02:35)
[2020-03-17 05:42] LABS: BASOPHILS # (AUTO) 0.08 x10^3/uL (0-0.1); BASOPHILS % (AUTO) 1 % (0-1); EOSINOPHILS # (AUTO) 0.87 x10^3/uL (0-0.4); EOSINOPHILS % (AUTO) 11 % (1-7); LYMPHOCYTES # (AUTO) 1.46 x10^3/uL (1-3.4); LYMPHOCYTES % (AUTO) 18 % (22-44); MD NO; MEAN CORPUSCULAR HEMOGLOBIN 28.4 pg (27.5-34.5); MEAN CORPUSCULAR HGB CONC 32.4 g/dL (33.2-36.2); MEAN PLATELET VOLUME 8.1 fL (7.4-10.4); MONOCYTES # (AUTO) 0.65 x10^3/uL (0.2-0.8); MONOCYTES % (AUTO) 8 % (2-9); NEUTROPHILS % (AUTO) 63 % (42-75); PLATELET COUNT 365 x10^3/uL (130-400); RED BLOOD COUNT 4.04 x10^6/uL (4.38-5.82); RED CELL DISTRIBUTION WIDTH 16.3 % (9.4-14.8)
[2020-03-17 06:01] LABS: ANION GAP 9 mmol/L (5-15); CALCIUM 9.5 mg/dL (8.5-10.1); CHLORIDE 109 mmol/L (98-107)
[2020-03-17] MEDS: LEVOTHYROXINE 175 MCG TABLET PO SCH (06:15)
[2020-03-17 06:17] LABS: CREATININE 1.79 mg/dL (0.7-1.3)
[2020-03-17] MEDS: INSULIN LISPRO 100 UNITS/ML, PEN SQ-INSULIN SCH ×4 (08:10→21:08)
[2020-03-17] MEDS: METOPROLOL TARTRATE 100 MG TAB PO SCH ×3 (08:14→21:00)
[2020-03-17] MEDS: SENNA/DOCUSATE TABLET PO SCH (08:14)
[2020-03-17] MEDS: COLCHICINE 0.6 MG CAPSULE PO SCH ×2 (08:28→21:06)
[2020-03-17] MEDS: TAMSULOSIN 0.4 MG CAP.ER.24H PO SCH (08:28)
[2020-03-17] MEDS: NYSTATIN TOPICAL POWDER 15GM TP SCH ×2 (08:29→21:06)
[2020-03-17] MEDS: HYDROCORTISONE CRM 1%, 30GM TP SCH ×2 (08:29→21:06)
[2020-03-17] MEDS: DIGOXIN 0.25 MG/ML, 2ML IVPush SCH (10:31)
[2020-03-17 11:45] LABS: CLOSTRIDIUM DIFFICILE ANTIGEN NEGATIVE; CLOSTRIDIUM DIFFICILE TOXIN NEGATIVE (Negative)
[2020-03-17] MEDS: RIVAROXABAN 20 MG TABLET PO SCH (17:45)
[2020-03-17] MEDS: NYSTATIN CRM 15GM TP SCH (21:00)
[2020-03-17] MEDS: ATORVASTATIN 40 MG TABLET PO SCH (21:06)
[2020-03-17] MEDS: INSULIN GLARGINE 100 UNITS/ML, PEN SQ-INSULIN SCH (21:08)
[2020-03-18 05:45] LABS: ANION GAP 8 mmol/L (5-15); CALCIUM 9.6 mg/dL (8.5-10.1); CHLORIDE 109 mmol/L (98-107); CREATININE 1.43 mg/dL (0.7-1.3)
[2020-03-18 05:50] LABS: BASOPHILS # (AUTO) 0.09 x10^3/uL (0-0.1); BASOPHILS % (AUTO) 1 % (0-1); EOSINOPHILS # (AUTO) 0.75 x10^3/uL (0-0.4); EOSINOPHILS % (AUTO) 7 % (1-7); LYMPHOCYTES % (AUTO) 10 % (22-44); MD NO; MEAN CORPUSCULAR HEMOGLOBIN 28.8 pg (27.5-34.5); MEAN CORPUSCULAR HGB CONC 32.9 g/dL (33.2-36.2); MEAN PLATELET VOLUME 8.5 fL (7.4-10.4); MONOCYTES # (AUTO) 0.67 x10^3/uL (0.2-0.8); MONOCYTES % (AUTO) 6 % (2-9); NEUTROPHILS # (AUTO) 8.48 x10^3/uL (1.8-6.8); NEUTROPHILS % (AUTO) 77 % (42-75); PLATELET COUNT 334 x10^3/uL (130-400); RED BLOOD COUNT 4.05 x10^6/uL (4.38-5.82); RED CELL DISTRIBUTION WIDTH 16.5 % (9.4-14.8)
[2020-03-18] MEDS: LEVOTHYROXINE 175 MCG TABLET PO SCH (06:23)
[2020-03-18] MEDS: DIGOXIN 0.25 MG/ML, 2ML IVPush SCH (08:20)
[2020-03-18] MEDS: FERROUS SULFATE 325 MG TABLET PO SCH (08:21)
[2020-03-18] MEDS: SENNA/DOCUSATE TABLET PO SCH (08:21)
[2020-03-18] MEDS: ASCORBIC ACID 500 MG TABLET PO SCH (08:21)
[2020-03-18] MEDS: INSULIN LISPRO 100 UNITS/ML, PEN SQ-INSULIN SCH ×4 (08:21→20:31)
[2020-03-18] MEDS: COLCHICINE 0.6 MG CAPSULE PO SCH ×2 (08:21→20:30)
[2020-03-18] MEDS: TAMSULOSIN 0.4 MG CAP.ER.24H PO SCH (08:21)
[2020-03-18] MEDS: NYSTATIN TOPICAL POWDER 15GM TP SCH ×2 (08:22→20:31)
[2020-03-18] MEDS: HYDROCORTISONE CRM 1%, 30GM TP SCH ×2 (08:22→20:30)
[2020-03-18] MEDS: NYSTATIN CRM 15GM TP SCH ×2 (08:22→20:31)
[2020-03-18] MEDS: METOPROLOL TARTRATE 100 MG TAB PO SCH ×2 (08:25→16:00)
[2020-03-18 08:27] VITALS: BP 95/63
[2020-03-18 12:02] VITALS: BP 124/81
[2020-03-18] MEDS: METOPROLOL TARTRATE 25 MG TAB PO SCH ×2 (15:30→20:30)
[2020-03-18] MEDS: DILTIAZEM 125 MG in SODIUM CHLORIDE 0.9% 100 ML IV SCH (16:46)
[2020-03-18] MEDS: RIVAROXABAN 20 MG TABLET PO SCH (16:53)
[2020-03-18 16:54] VITALS: BP 108/70
[2020-03-18 18:28] VITALS: BP 111/66
[2020-03-18 20:27] VITALS: BP 118/76
[2020-03-18] MEDS: ATORVASTATIN 40 MG TABLET PO SCH (20:30)
[2020-03-18] MEDS: INSULIN GLARGINE 100 UNITS/ML, PEN SQ-INSULIN SCH (20:31)
[2020-03-19] VITALS (7 sets, daily range): BP systolic 101–127; BP diastolic 64–82
[2020-03-19] MEDS: METOPROLOL TARTRATE 25 MG TAB PO SCH ×4 (03:00→21:33)
[2020-03-19 04:33] LABS: BASOPHILS # (AUTO) 0.01 x10^3/uL (0-0.1); BASOPHILS % (AUTO) 0 % (0-1); EOSINOPHILS # (AUTO) 0.74 x10^3/uL (0-0.4); EOSINOPHILS % (AUTO) 8 % (1-7); LYMPHOCYTES % (AUTO) 14 % (22-44); MD NO; MEAN CORPUSCULAR HEMOGLOBIN 28.4 pg (27.5-34.5); MEAN CORPUSCULAR HGB CONC 32.4 g/dL (33.2-36.2); MEAN PLATELET VOLUME 8.1 fL (7.4-10.4); MONOCYTES # (AUTO) 0.73 x10^3/uL (0.2-0.8); MONOCYTES % (AUTO) 8 % (2-9); NEUTROPHILS # (AUTO) 6.91 x10^3/uL (1.8-6.8); NEUTROPHILS % (AUTO) 71 % (42-75); PLATELET COUNT 309 x10^3/uL (130-400); RED BLOOD COUNT 3.97 x10^6/uL (4.38-5.82); RED CELL DISTRIBUTION WIDTH 16.5 % (9.4-14.8)
[2020-03-19 04:42] LABS: ANION GAP 7 mmol/L (5-15); CALCIUM 9.3 mg/dL (8.5-10.1); CHLORIDE 110 mmol/L (98-107)
[2020-03-19 04:58] LABS: CREATININE 1.36 mg/dL (0.7-1.3)
[2020-03-19] MEDS: LEVOTHYROXINE 175 MCG TABLET PO SCH (05:49)
[2020-03-19] MEDS: SENNA/DOCUSATE TABLET PO SCH (09:00)
[2020-03-19] MEDS: INSULIN LISPRO 100 UNITS/ML, PEN SQ-INSULIN SCH ×4 (09:00→21:34)
[2020-03-19] MEDS: TAMSULOSIN 0.4 MG CAP.ER.24H PO SCH (09:02)
[2020-03-19] MEDS: DIGOXIN 0.25 MG/ML, 2ML IVPush SCH (09:03)
[2020-03-19] MEDS: COLCHICINE 0.6 MG CAPSULE PO SCH ×2 (09:03→21:33)
[2020-03-19] MEDS: NYSTATIN TOPICAL POWDER 15GM TP SCH ×2 (09:04→21:34)
[2020-03-19] MEDS: HYDROCORTISONE CRM 1%, 30GM TP SCH ×2 (09:04→21:34)
[2020-03-19] MEDS: NYSTATIN CRM 15GM TP SCH ×2 (09:04→21:34)
[2020-03-19 12:56] LABS: CLOSTRIDIUM DIFFICILE ANTIGEN NEGATIVE; CLOSTRIDIUM DIFFICILE TOXIN NEGATIVE (Negative)
[2020-03-19] MEDS: DILTIAZEM 125 MG in SODIUM CHLORIDE 0.9% 100 ML IV SCH (16:12)
[2020-03-19] MEDS: RIVAROXABAN 20 MG TABLET PO SCH (16:13)
[2020-03-19] MEDS: ATORVASTATIN 40 MG TABLET PO SCH (21:33)
[2020-03-19] MEDS: INSULIN GLARGINE 100 UNITS/ML, PEN SQ-INSULIN SCH (21:34)
[2020-03-20 02:18] VITALS: BP 142/83
[2020-03-20] MEDS: METOPROLOL TARTRATE 25 MG TAB PO SCH ×4 (02:53→22:14)
[2020-03-20] MEDS: LEVOTHYROXINE 175 MCG TABLET PO SCH (05:46)
[2020-03-20 07:08] VITALS: BP 137/83
[2020-03-20] MEDS: SENNA/DOCUSATE TABLET PO SCH (08:21)
[2020-03-20 08:47] VITALS: BP 122/75
[2020-03-20] MEDS: FERROUS SULFATE 325 MG TABLET PO SCH (08:50)
[2020-03-20] MEDS: TAMSULOSIN 0.4 MG CAP.ER.24H PO SCH (08:50)
[2020-03-20] MEDS: COLCHICINE 0.6 MG CAPSULE PO SCH ×2 (08:50→22:13)
[2020-03-20] MEDS: ASCORBIC ACID 500 MG TABLET PO SCH (08:50)
[2020-03-20] MEDS: NYSTATIN CRM 15GM TP SCH ×2 (08:51→22:14)
[2020-03-20] MEDS: HYDROCORTISONE CRM 1%, 30GM TP SCH ×3 (08:52→22:26)
[2020-03-20] MEDS: INSULIN GLARGINE 100 UNITS/ML, PEN SQ-INSULIN SCH ×2 (08:55→22:25)
[2020-03-20] MEDS: INSULIN LISPRO 100 UNITS/ML, PEN SQ-INSULIN SCH ×4 (08:56→22:23)
[2020-03-20] MEDS: DIGOXIN 0.25 MG/ML, 2ML IVPush SCH (08:57)
[2020-03-20] MEDS: NYSTATIN TOPICAL POWDER 15GM TP SCH ×2 (09:00→22:14)
[2020-03-20 09:19] LABS: ANION GAP 8 mmol/L (5-15); CHLORIDE 112 mmol/L (98-107); CREATININE 1.44 mg/dL (0.7-1.3)
[2020-03-20] MEDS: DILTIAZEM 240 MG CAP.ER.24H PO SCH ×2 (11:42→12:03)
[2020-03-20 13:46] VITALS: BP 126/81
[2020-03-20 16:25] VITALS: BP 132/77
[2020-03-20] MEDS: PSYLLIUM PACKET PO SCH ×2 (16:26→22:13)
[2020-03-20] MEDS: RIVAROXABAN 20 MG TABLET PO SCH (16:26)
[2020-03-20] MEDS: LOPERAMIDE 2 MG CAPSULE PO SCH ×2 (16:26→22:13)
[2020-03-20 19:12] VITALS: BP 131/82
[2020-03-20] MEDS: ACETAMINOPHEN 325 MG TABLET PO PRN (22:13)
[2020-03-20] MEDS: ATORVASTATIN 40 MG TABLET PO SCH (22:13)
[2020-03-21 00:26] VITALS: BP 122/82
[2020-03-21] MEDS: LOPERAMIDE 2 MG CAPSULE PO SCH ×3 (05:18→21:10)
[2020-03-21] MEDS: METOPROLOL TARTRATE 25 MG TAB PO SCH ×4 (05:18→21:11)
[2020-03-21] MEDS: LEVOTHYROXINE 175 MCG TABLET PO SCH (05:19)
[2020-03-21 07:20] VITALS: BP 131/77
[2020-03-21] MEDS: NYSTATIN TOPICAL POWDER 15GM TP SCH ×2 (08:29→21:11)
[2020-03-21] MEDS: INSULIN GLARGINE 100 UNITS/ML, PEN SQ-INSULIN SCH ×2 (08:29→21:09)
[2020-03-21] MEDS: INSULIN LISPRO 100 UNITS/ML, PEN SQ-INSULIN SCH ×4 (08:30→21:10)
[2020-03-21] MEDS: ASCORBIC ACID 500 MG TABLET PO SCH (08:30)
[2020-03-21] MEDS: DILTIAZEM 240 MG CAP.ER.24H PO SCH (08:31)
[2020-03-21] MEDS: HYDROCORTISONE CRM 1%, 30GM TP SCH ×2 (08:31→21:10)
[2020-03-21] MEDS: SENNA/DOCUSATE TABLET PO SCH (08:31)
[2020-03-21] MEDS: NYSTATIN CRM 15GM TP SCH ×2 (08:31→21:10)
[2020-03-21] MEDS: PSYLLIUM PACKET PO SCH ×3 (08:32→21:00)
[2020-03-21] MEDS: COLCHICINE 0.6 MG CAPSULE PO SCH ×2 (08:32→21:11)
[2020-03-21] MEDS: TAMSULOSIN 0.4 MG CAP.ER.24H PO SCH (08:32)
[2020-03-21] MEDS: DIGOXIN 0.25 MG/ML, 2ML IVPush SCH (08:32)
[2020-03-21] MEDS ORDERED: ONDANSETRON 2MG/ML, 2ML ONE (10:52)
[2020-03-21] MEDS: ONDANSETRON ODT 4 MG PO PRN (12:00)
[2020-03-21 15:40] VITALS: BP 125/78
[2020-03-21] MEDS: RIVAROXABAN 20 MG TABLET PO SCH (17:49)
[2020-03-21 19:17] VITALS: BP 136/80
[2020-03-21] MEDS: ATORVASTATIN 40 MG TABLET PO SCH (21:11)
[2020-03-22] VITALS (7 sets, daily range): BP systolic 109–143; BP diastolic 69–87
[2020-03-22] MEDS: METOPROLOL TARTRATE 25 MG TAB PO SCH ×5 (04:00→22:09)
[2020-03-22] MEDS: LEVOTHYROXINE 175 MCG TABLET PO SCH (06:20)
[2020-03-22] MEDS: SENNA/DOCUSATE TABLET PO SCH (08:15)
[2020-03-22] MEDS: DIGOXIN 0.25 MG/ML, 2ML IVPush SCH (09:00)
[2020-03-22] MEDS: PSYLLIUM PACKET PO SCH ×2 (09:00→20:02)
[2020-03-22] MEDS: COLCHICINE 0.6 MG CAPSULE PO SCH ×2 (09:54→20:01)
[2020-03-22] MEDS: DILTIAZEM 240 MG CAP.ER.24H PO SCH (09:54)
[2020-03-22] MEDS: ASCORBIC ACID 500 MG TABLET PO SCH (09:54)
[2020-03-22] MEDS: TAMSULOSIN 0.4 MG CAP.ER.24H PO SCH (09:54)
[2020-03-22] MEDS: LOPERAMIDE 2 MG CAPSULE PO SCH ×2 (09:54→20:01)
[2020-03-22] MEDS: FERROUS SULFATE 325 MG TABLET PO SCH (09:55)
[2020-03-22] MEDS: INSULIN LISPRO 100 UNITS/ML, PEN SQ-INSULIN SCH ×4 (09:56→19:42)
[2020-03-22] MEDS: INSULIN GLARGINE 100 UNITS/ML, PEN SQ-INSULIN SCH ×2 (09:56→20:02)
[2020-03-22] MEDS: NYSTATIN TOPICAL POWDER 15GM TP SCH ×2 (09:59→20:02)
[2020-03-22] MEDS: NYSTATIN CRM 15GM TP SCH ×2 (09:59→20:02)
[2020-03-22] MEDS: HYDROCORTISONE CRM 1%, 30GM TP SCH ×2 (09:59→20:02)
[2020-03-22 10:01] LABS: ANION GAP 7 mmol/L (5-15); CALCIUM 9.2 mg/dL (8.5-10.1); CHLORIDE 107 mmol/L (98-107)
[2020-03-22 10:17] LABS: BASOPHILS # (AUTO) 0.02 x10^3/uL (0-0.1); BASOPHILS % (AUTO) 1 % (0-1); EOSINOPHILS # (AUTO) 0.58 x10^3/uL (0-0.4); EOSINOPHILS % (AUTO) 12 % (1-7); HEMOGRAM NOTE RECHECKED; LYMPHOCYTES % (AUTO) 22 % (22-44); MD SCAN; MEAN CORPUSCULAR HEMOGLOBIN 28.1 pg (27.5-34.5); MEAN CORPUSCULAR HGB CONC 32.1 g/dL (33.2-36.2); MEAN PLATELET VOLUME 7.9 fL (7.4-10.4); MONOCYTES # (AUTO) 0.47 x10^3/uL (0.2-0.8); MONOCYTES % (AUTO) 10 % (2-9); NEUTROPHILS # (AUTO) 2.75 x10^3/uL (1.8-6.8); NEUTROPHILS % (AUTO) 56 % (42-75); PLATELET COUNT 242 x10^3/uL (130-400); RED BLOOD COUNT 3.85 x10^6/uL (4.38-5.82); RED CELL DISTRIBUTION WIDTH 16.6 % (9.4-14.8)
[2020-03-22] MEDS: DIGOXIN 0.25 MG TABLET PO SCH (14:37)
[2020-03-22] MEDS: CYCLOBENZAPRINE 10 MG TABLET PO PRN (18:08)
[2020-03-22] MEDS: RIVAROXABAN 20 MG TABLET PO SCH (18:09)
[2020-03-22] MEDS: ATORVASTATIN 40 MG TABLET PO SCH (20:00)
[2020-03-23 00:26] VITALS: BP 128/81
[2020-03-23] MEDS: METOPROLOL TARTRATE 25 MG TAB PO SCH ×4 (04:58→21:24)
[2020-03-23] MEDS: LEVOTHYROXINE 175 MCG TABLET PO SCH (04:58)
[2020-03-23 04:59] VITALS: BP 118/67
[2020-03-23 06:46] LABS: ANION GAP 8 mmol/L (5-15); CALCIUM 9.3 mg/dL (8.5-10.1); CHLORIDE 104 mmol/L (98-107); CREATININE 1.36 mg/dL (0.7-1.3)
[2020-03-23] MEDS: INSULIN LISPRO 100 UNITS/ML, PEN SQ-INSULIN SCH ×4 (07:00→21:00)
[2020-03-23] MEDS ORDERED: DIGOXIN 0.25 MG TABLET PO SCH (09:00)
[2020-03-23] MEDS: FERROUS SULFATE 325 MG TABLET PO SCH (09:57)
[2020-03-23] MEDS: TAMSULOSIN 0.4 MG CAP.ER.24H PO SCH (09:57)
[2020-03-23] MEDS: DILTIAZEM 240 MG CAP.ER.24H PO SCH (09:57)
[2020-03-23] MEDS: COLCHICINE 0.6 MG CAPSULE PO SCH ×2 (09:57→21:22)
[2020-03-23] MEDS: DIGOXIN 0.25 MG TABLET PO SCH (09:58)
[2020-03-23] MEDS: PSYLLIUM PACKET PO SCH ×2 (09:58→21:00)
[2020-03-23] MEDS: LOPERAMIDE 2 MG CAPSULE PO SCH ×2 (09:58→21:22)
[2020-03-23] MEDS: INSULIN GLARGINE 100 UNITS/ML, PEN SQ-INSULIN SCH ×2 (10:03→21:23)
[2020-03-23] MEDS: NYSTATIN CRM 15GM TP SCH ×2 (10:03→21:25)
[2020-03-23] MEDS: HYDROCORTISONE CRM 1%, 30GM TP SCH ×2 (10:04→21:24)
[2020-03-23] MEDS: NYSTATIN TOPICAL POWDER 15GM TP SCH ×2 (10:04→21:25)
[2020-03-23 15:05] VITALS: BP 131/81
[2020-03-23] MEDS: RIVAROXABAN 20 MG TABLET PO SCH (18:16)
[2020-03-23 18:46] VITALS: BP 130/76
[2020-03-23] MEDS: ATORVASTATIN 40 MG TABLET PO SCH (21:22)
[2020-03-24 01:53] VITALS: BP 106/66
[2020-03-24 04:01] VITALS: BP 119/70
[2020-03-24] MEDS: METOPROLOL TARTRATE 25 MG TAB PO SCH ×4 (04:02→21:02)
[2020-03-24] MEDS: LEVOTHYROXINE 175 MCG TABLET PO SCH (06:07)
[2020-03-24 06:56] VITALS: BP 116/69
[2020-03-24] MEDS: INSULIN LISPRO 100 UNITS/ML, PEN SQ-INSULIN SCH ×4 (07:00→21:00)
[2020-03-24] MEDS: DILTIAZEM 240 MG CAP.ER.24H PO SCH (08:09)
[2020-03-24] MEDS: ASCORBIC ACID 500 MG TABLET PO SCH (08:10)
[2020-03-24] MEDS: LOPERAMIDE 2 MG CAPSULE PO SCH ×2 (08:10→21:01)
[2020-03-24] MEDS: TAMSULOSIN 0.4 MG CAP.ER.24H PO SCH (08:11)
[2020-03-24] MEDS: COLCHICINE 0.6 MG CAPSULE PO SCH ×2 (08:11→21:02)
[2020-03-24] MEDS: DIGOXIN 0.25 MG TABLET PO SCH (08:11)
[2020-03-24] MEDS: FERROUS SULFATE 325 MG TABLET PO SCH (08:11)
[2020-03-24] MEDS: INSULIN GLARGINE 100 UNITS/ML, PEN SQ-INSULIN SCH ×2 (08:12→21:02)
[2020-03-24] MEDS: PSYLLIUM PACKET PO SCH ×2 (08:12→21:00)
[2020-03-24 08:18] LABS: CRYPTOSPORIDIUM ANTIGEN Negative (Negative)
[2020-03-24] MEDS: HYDROCORTISONE CRM 1%, 30GM TP SCH ×2 (11:08→21:03)
[2020-03-24] MEDS: NYSTATIN CRM 15GM TP SCH ×2 (11:08→21:03)
[2020-03-24] MEDS: NYSTATIN TOPICAL POWDER 15GM TP SCH ×2 (11:08→21:03)
[2020-03-24 13:57] VITALS: BP 128/80
[2020-03-24 16:21] VITALS: BP 131/81
[2020-03-24] MEDS: RIVAROXABAN 20 MG TABLET PO SCH (16:22)
[2020-03-24 18:44] VITALS: BP 119/69
[2020-03-24] MEDS: ATORVASTATIN 40 MG TABLET PO SCH (21:02)
[2020-03-25 00:19] VITALS: BP 122/81
[2020-03-25 04:33] VITALS: BP 119/75
[2020-03-25] MEDS: METOPROLOL TARTRATE 25 MG TAB PO SCH ×4 (04:33→21:32)
[2020-03-25] MEDS: LEVOTHYROXINE 175 MCG TABLET PO SCH (06:21)
[2020-03-25 06:38] VITALS: BP 127/70
[2020-03-25] MEDS: INSULIN LISPRO 100 UNITS/ML, PEN SQ-INSULIN SCH ×4 (07:00→21:35)
[2020-03-25 07:09] VITALS: BP 113/70
[2020-03-25] MEDS: LOPERAMIDE 2 MG CAPSULE PO SCH ×2 (07:28→20:32)
[2020-03-25] MEDS: DILTIAZEM 240 MG CAP.ER.24H PO SCH (07:28)
[2020-03-25] MEDS: PSYLLIUM PACKET PO SCH ×2 (07:29→20:33)
[2020-03-25] MEDS: COLCHICINE 0.6 MG CAPSULE PO SCH ×2 (07:29→20:32)
[2020-03-25] MEDS: DIGOXIN 0.25 MG TABLET PO SCH (07:29)
[2020-03-25] MEDS: NYSTATIN CRM 15GM TP SCH ×2 (07:29→20:33)
[2020-03-25] MEDS: TAMSULOSIN 0.4 MG CAP.ER.24H PO SCH (07:29)
[2020-03-25] MEDS: NYSTATIN TOPICAL POWDER 15GM TP SCH ×2 (07:30→20:33)
[2020-03-25] MEDS: HYDROCORTISONE CRM 1%, 30GM TP SCH ×2 (07:30→20:33)
[2020-03-25] MEDS: INSULIN GLARGINE 100 UNITS/ML, PEN SQ-INSULIN SCH ×2 (07:38→21:38)
[2020-03-25 12:42] VITALS: BP 134/83
[2020-03-25] MEDS: PANCRELIPASE 5000 CAPSULE.DR PO SCH (16:46)
[2020-03-25] MEDS: ASCORBIC ACID 500 MG TABLET PO SCH (16:47)
[2020-03-25] MEDS: RIVAROXABAN 20 MG TABLET PO SCH (16:47)
[2020-03-25 18:44] VITALS: BP 130/74
[2020-03-25] MEDS: OMEGA-3/FISH OIL CAPSULE PO SCH (20:32)
[2020-03-25] MEDS: ATORVASTATIN 40 MG TABLET PO SCH (20:32)
[2020-03-25] MEDS ORDERED: PANCRELIPASE 5000 CAPSULE.DR PO SCH (21:00)
[2020-03-26 01:33] VITALS: BP 136/81
[2020-03-26] MEDS: METOPROLOL TARTRATE 25 MG TAB PO SCH ×4 (04:00→22:29)
[2020-03-26] MEDS: LEVOTHYROXINE 175 MCG TABLET PO SCH (04:48)
[2020-03-26] MEDS: INSULIN LISPRO 100 UNITS/ML, PEN SQ-INSULIN SCH ×4 (07:00→20:16)
[2020-03-26 07:58] VITALS: BP 144/83
[2020-03-26] MEDS: PSYLLIUM PACKET PO SCH ×2 (08:05→21:00)
[2020-03-26] MEDS: ASCORBIC ACID 500 MG TABLET PO SCH ×2 (08:06→16:38)
[2020-03-26] MEDS: DILTIAZEM 240 MG CAP.ER.24H PO SCH (08:06)
[2020-03-26] MEDS: ZINC SULFATE 220 MG CAPSULE PO SCH (08:07)
[2020-03-26] MEDS: LOPERAMIDE 2 MG CAPSULE PO SCH ×2 (08:07→21:45)
[2020-03-26] MEDS: FERROUS SULFATE 325 MG TABLET PO SCH (08:07)
[2020-03-26] MEDS: COLCHICINE 0.6 MG CAPSULE PO SCH ×2 (08:07→21:45)
[2020-03-26] MEDS: MULTIVITS,STRESS FORMULA 1 TABLET PO SCH (08:08)
[2020-03-26] MEDS: CHOLECALCIFEROL 5,000u TAB PO SCH (08:08)
[2020-03-26] MEDS: PANCRELIPASE 5000 CAPSULE.DR PO SCH ×3 (08:08→16:38)
[2020-03-26] MEDS: DIGOXIN 0.25 MG TABLET PO SCH (08:09)
[2020-03-26] MEDS: OMEGA-3/FISH OIL CAPSULE PO SCH ×2 (08:10→21:44)
[2020-03-26] MEDS: TAMSULOSIN 0.4 MG CAP.ER.24H PO SCH (08:14)
[2020-03-26] MEDS: INSULIN GLARGINE 100 UNITS/ML, PEN SQ-INSULIN SCH ×2 (08:33→21:47)
[2020-03-26] MEDS: NYSTATIN CRM 15GM TP SCH ×2 (11:52→21:46)
[2020-03-26] MEDS: NYSTATIN TOPICAL POWDER 15GM TP SCH ×2 (11:52→22:30)
[2020-03-26] MEDS: HYDROCORTISONE CRM 1%, 30GM TP SCH ×2 (11:52→21:46)
[2020-03-26 15:01] VITALS: BP 147/84
[2020-03-26] MEDS: RIVAROXABAN 20 MG TABLET PO SCH (16:38)
[2020-03-26 19:38] VITALS: BP 136/65
[2020-03-26 21:42] VITALS: BP 134/87
[2020-03-26] MEDS: ATORVASTATIN 40 MG TABLET PO SCH (21:45)
[2020-03-27] MEDS: METOPROLOL TARTRATE 25 MG TAB PO SCH ×3 (04:00→16:28)
[2020-03-27 04:29] VITALS: BP 107/74
[2020-03-27 06:03] LABS: ALBUMIN 2.8 g/dL (3.4-5.0); ANION GAP 8 mmol/L (5-15); CALCIUM 9.2 mg/dL (8.5-10.1); CHLORIDE 106 mmol/L (98-107)
[2020-03-27 06:06] LABS: CREATININE 1.76 mg/dL (0.7-1.3)
[2020-03-27 06:11] LABS: BASOPHILS % (AUTO) 1 % (0-1); EOSINOPHILS % (AUTO) 7 % (1-7); LYMPHOCYTES % (AUTO) 22 % (22-44); MEAN CORPUSCULAR HEMOGLOBIN 28.3 pg (27.5-34.5); MEAN CORPUSCULAR HGB CONC 33.2 g/dL (33.2-36.2); MEAN PLATELET VOLUME 8.4 fL (7.4-10.4); MONOCYTES % (AUTO) 8 % (2-9); NEUTROPHILS % (AUTO) 61 % (42-75); PLATELET COUNT 249 x10^3/uL (130-400); RED CELL DISTRIBUTION WIDTH 16.6 % (9.4-14.8)
[2020-03-27 06:18] VITALS: BP 139/71
[2020-03-27 06:29] LABS: MD NO
[2020-03-27] MEDS: LEVOTHYROXINE 175 MCG TABLET PO SCH (06:45)
[2020-03-27] MEDS: INSULIN LISPRO 100 UNITS/ML, PEN SQ-INSULIN SCH ×4 (07:00→21:00)
[2020-03-27] MEDS: ASCORBIC ACID 500 MG TABLET PO SCH ×3 (07:45→16:31)
[2020-03-27] MEDS: CHOLECALCIFEROL 5,000u TAB PO SCH (07:45)
[2020-03-27] MEDS: PANCRELIPASE 5000 CAPSULE.DR PO SCH ×4 (07:46→17:32)
[2020-03-27] MEDS: PSYLLIUM PACKET PO SCH ×2 (09:00→21:00)
[2020-03-27] MEDS: OMEGA-3/FISH OIL CAPSULE PO SCH ×2 (09:23→21:00)
[2020-03-27] MEDS: DILTIAZEM 240 MG CAP.ER.24H PO SCH (09:23)
[2020-03-27] MEDS: MULTIVITS,STRESS FORMULA 1 TABLET PO SCH (09:23)
[2020-03-27] MEDS: TAMSULOSIN 0.4 MG CAP.ER.24H PO SCH (09:23)
[2020-03-27] MEDS: COLCHICINE 0.6 MG CAPSULE PO SCH (09:23)
[2020-03-27] MEDS: ZINC SULFATE 220 MG CAPSULE PO SCH (09:24)
[2020-03-27] MEDS: LOPERAMIDE 2 MG CAPSULE PO SCH (09:24)
[2020-03-27] MEDS: DIGOXIN 0.25 MG TABLET PO SCH (09:24)
[2020-03-27] MEDS: INSULIN GLARGINE 100 UNITS/ML, PEN SQ-INSULIN SCH (10:23)
[2020-03-27] MEDS: HYDROCORTISONE CRM 1%, 30GM TP SCH ×2 (10:23→21:00)
[2020-03-27] MEDS: NYSTATIN CRM 15GM TP SCH (10:23)
[2020-03-27] MEDS: NYSTATIN TOPICAL POWDER 15GM TP SCH (10:23)
[2020-03-27 13:58] VITALS: BP 133/68
[2020-03-27] MEDS: RIVAROXABAN 20 MG TABLET PO SCH (17:32)
[2020-03-27 20:08] VITALS: BP 119/76
[2020-03-28] VITALS (8 sets, daily range): BP systolic 105–121; BP diastolic 65–80
[2020-03-28] MEDS: INSULIN GLARGINE 100 UNITS/ML, PEN SQ-INSULIN SCH ×3 (00:04→22:24)
[2020-03-28] MEDS: NYSTATIN TOPICAL POWDER 15GM TP SCH ×3 (00:04→21:00)
[2020-03-28] MEDS: NYSTATIN CRM 15GM TP SCH ×3 (00:04→22:39)
[2020-03-28] MEDS: LOPERAMIDE 2 MG CAPSULE PO SCH ×3 (00:05→22:25)
[2020-03-28] MEDS: COLCHICINE 0.6 MG CAPSULE PO SCH ×3 (00:05→22:24)
[2020-03-28] MEDS: METOPROLOL TARTRATE 25 MG TAB PO SCH ×5 (00:05→22:24)
[2020-03-28] MEDS: ATORVASTATIN 40 MG TABLET PO SCH ×2 (00:05→22:25)
[2020-03-28] MEDS: LEVOTHYROXINE 175 MCG TABLET PO SCH (06:07)
[2020-03-28] MEDS: PANCRELIPASE 5000 CAPSULE.DR PO SCH ×3 (07:00→16:00)
[2020-03-28] MEDS: INSULIN LISPRO 100 UNITS/ML, PEN SQ-INSULIN SCH ×4 (07:00→21:00)
[2020-03-28] MEDS: ASCORBIC ACID 500 MG TABLET PO SCH ×2 (08:00→16:44)
[2020-03-28] MEDS: PSYLLIUM PACKET PO SCH ×2 (08:18→21:00)
[2020-03-28] MEDS: TAMSULOSIN 0.4 MG CAP.ER.24H PO SCH (08:34)
[2020-03-28] MEDS: DILTIAZEM 240 MG CAP.ER.24H PO SCH (08:34)
[2020-03-28] MEDS: DIGOXIN 0.25 MG TABLET PO SCH (08:34)
[2020-03-28] MEDS: FERROUS SULFATE 325 MG TABLET PO SCH (08:46)
[2020-03-28] MEDS: HYDROCORTISONE CRM 1%, 30GM TP SCH ×2 (08:46→22:39)
[2020-03-28] MEDS: MULTIVITS,STRESS FORMULA 1 TABLET PO SCH (08:46)
[2020-03-28] MEDS: ZINC SULFATE 220 MG CAPSULE PO SCH (08:46)
[2020-03-28] MEDS: OMEGA-3/FISH OIL CAPSULE PO SCH ×2 (08:46→21:00)
[2020-03-28] MEDS: CHOLECALCIFEROL 5,000u TAB PO SCH (08:46)
[2020-03-28] MEDS ORDERED: LOPERAMIDE 2 MG CAPSULE PO PRN (10:30)
[2020-03-28] MEDS ORDERED: POTASSIUM CHLORIDE 20 MEQ in SODIUM CHLORIDE 0.9% 250 ML IV ONE (10:30)
[2020-03-28] MEDS ORDERED: LACTATED RINGERS 1,000 ML IVBOLUS ONE (15:00)
[2020-03-28] MEDS: RIVAROXABAN 20 MG TABLET PO SCH (17:17)
[2020-03-29] MEDS: METOPROLOL TARTRATE 25 MG TAB PO SCH ×4 (04:08→22:00)
[2020-03-29 04:09] VITALS: BP 103/72
[2020-03-29] MEDS: LEVOTHYROXINE 175 MCG TABLET PO SCH (05:54)
[2020-03-29] MEDS: ACETAMINOPHEN 325 MG TABLET PO PRN (05:59)
[2020-03-29 06:53] VITALS: BP 97/64
[2020-03-29] MEDS: INSULIN LISPRO 100 UNITS/ML, PEN SQ-INSULIN SCH ×4 (07:00→21:00)
[2020-03-29] MEDS: ASCORBIC ACID 500 MG TABLET PO SCH ×2 (08:00→16:56)
[2020-03-29] MEDS: PANCRELIPASE 5000 CAPSULE.DR PO SCH ×3 (08:02→16:56)
[2020-03-29] MEDS: MULTIVITS,STRESS FORMULA 1 TABLET PO SCH (08:06)
[2020-03-29] MEDS: OMEGA-3/FISH OIL CAPSULE PO SCH ×2 (08:06→21:00)
[2020-03-29] MEDS: PSYLLIUM PACKET PO SCH ×2 (08:06→21:00)
[2020-03-29] MEDS: CHOLECALCIFEROL 5,000u TAB PO SCH (08:07)
[2020-03-29] MEDS: ZINC SULFATE 220 MG CAPSULE PO SCH (08:07)
[2020-03-29] MEDS: NYSTATIN CRM 15GM TP SCH ×3 (09:00→21:00)
[2020-03-29] MEDS: HYDROCORTISONE CRM 1%, 30GM TP SCH ×3 (09:00→22:11)
[2020-03-29 10:18] VITALS: BP 111/69
[2020-03-29] MEDS: DILTIAZEM 240 MG CAP.ER.24H PO SCH (10:21)
[2020-03-29] MEDS: LOPERAMIDE 2 MG CAPSULE PO SCH ×2 (10:21→22:11)
[2020-03-29] MEDS: TAMSULOSIN 0.4 MG CAP.ER.24H PO SCH (10:22)
[2020-03-29] MEDS: COLCHICINE 0.6 MG CAPSULE PO SCH ×2 (10:22→22:10)
[2020-03-29] MEDS: INSULIN GLARGINE 100 UNITS/ML, PEN SQ-INSULIN SCH ×2 (10:23→22:10)
[2020-03-29] MEDS: DIGOXIN 0.25 MG TABLET PO SCH (10:23)
[2020-03-29] MEDS: NYSTATIN TOPICAL POWDER 15GM TP SCH ×2 (10:25→22:11)
[2020-03-29 14:56] VITALS: BP 113/74
[2020-03-29] MEDS: RIVAROXABAN 20 MG TABLET PO SCH (16:56)
[2020-03-29 18:38] VITALS: BP 99/63
[2020-03-29] MEDS: ATORVASTATIN 40 MG TABLET PO SCH (22:10)
[2020-03-29 22:14] VITALS: BP 108/70
[2020-03-30 00:39] VITALS: BP 93/65
[2020-03-30 03:56] LABS: BASOPHILS % (AUTO) 1 % (0-1); EOSINOPHILS % (AUTO) 6 % (1-7); LYMPHOCYTES % (AUTO) 25 % (22-44); MEAN CORPUSCULAR HEMOGLOBIN 28.4 pg (27.5-34.5); MEAN CORPUSCULAR HGB CONC 33.9 g/dL (33.2-36.2); MEAN PLATELET VOLUME 8.5 fL (7.4-10.4); MONOCYTES % (AUTO) 10 % (2-9); NEUTROPHILS % (AUTO) 58 % (42-75); PLATELET COUNT 199 x10^3/uL (130-400); RED BLOOD COUNT 4.08 x10^6/uL (4.38-5.82); RED CELL DISTRIBUTION WIDTH 16.9 % (9.4-14.8)
[2020-03-30] MEDS: METOPROLOL TARTRATE 25 MG TAB PO SCH ×4 (04:00→21:34)
[2020-03-30 04:01] LABS: ALBUMIN 2.9 g/dL (3.4-5.0); ANION GAP 7 mmol/L (5-15); CALCIUM 8.9 mg/dL (8.5-10.1); CHLORIDE 107 mmol/L (98-107); CREATININE 2.27 mg/dL (0.7-1.3)
[2020-03-30 04:21] VITALS: BP 103/67
[2020-03-30 05:09] LABS: MD SCAN
[2020-03-30] MEDS: LEVOTHYROXINE 175 MCG TABLET PO SCH (05:20)
[2020-03-30] MEDS: INSULIN LISPRO 100 UNITS/ML, PEN SQ-INSULIN SCH ×4 (07:00→21:38)
[2020-03-30 07:37] VITALS: BP 125/79
[2020-03-30] MEDS: ASCORBIC ACID 500 MG TABLET PO SCH ×2 (08:00→17:00)
[2020-03-30] MEDS: INSULIN GLARGINE 100 UNITS/ML, PEN SQ-INSULIN SCH ×2 (08:06→21:34)
[2020-03-30] MEDS: TAMSULOSIN 0.4 MG CAP.ER.24H PO SCH (08:06)
[2020-03-30] MEDS: PANCRELIPASE 5000 CAPSULE.DR PO SCH (08:07)
[2020-03-30] MEDS: COLCHICINE 0.6 MG CAPSULE PO SCH ×2 (08:07→21:33)
[2020-03-30] MEDS: DIGOXIN 0.25 MG TABLET PO SCH (08:07)
[2020-03-30] MEDS: DILTIAZEM 240 MG CAP.ER.24H PO SCH (08:07)
[2020-03-30] MEDS: OMEGA-3/FISH OIL CAPSULE PO SCH ×2 (08:08→21:38)
[2020-03-30] MEDS: MULTIVITS,STRESS FORMULA 1 TABLET PO SCH (08:08)
[2020-03-30] MEDS: FERROUS SULFATE 325 MG TABLET PO SCH (08:08)
[2020-03-30] MEDS: LOPERAMIDE 2 MG CAPSULE PO SCH ×2 (08:08→21:34)
[2020-03-30] MEDS: PSYLLIUM PACKET PO SCH ×2 (08:08→21:38)
[2020-03-30] MEDS: CHOLECALCIFEROL 5,000u TAB PO SCH (08:09)
[2020-03-30] MEDS: ZINC SULFATE 220 MG CAPSULE PO SCH (08:09)
[2020-03-30] MEDS ORDERED: POTASSIUM CHLORIDE 20 MEQ TAB.ER.PRT PO ONE (09:30)
[2020-03-30] MEDS: SODIUM CHLORIDE 0.9% 1,000 ML IV SCH ×2 (10:30→17:29)
[2020-03-30] MEDS: HYDROCORTISONE CRM 1%, 30GM TP SCH ×2 (10:31→21:38)
[2020-03-30] MEDS: NYSTATIN CRM 15GM TP SCH ×2 (10:31→21:34)
[2020-03-30] MEDS: NYSTATIN TOPICAL POWDER 15GM TP SCH ×2 (10:31→21:34)
[2020-03-30] MEDS: ACETAMINOPHEN 325 MG TABLET PO PRN (12:51)
[2020-03-30 13:54] VITALS: BP 104/66
[2020-03-30] MEDS: RIVAROXABAN 20 MG TABLET PO SCH (17:29)
[2020-03-30 18:57] VITALS: BP 112/69
[2020-03-30] MEDS: ATORVASTATIN 40 MG TABLET PO SCH (21:33)
[2020-03-31] VITALS (7 sets, daily range): BP systolic 94–121; BP diastolic 59–76
[2020-03-31] MEDS: ACETAMINOPHEN 325 MG TABLET PO PRN ×2 (01:15→16:56)
[2020-03-31] MEDS: SODIUM CHLORIDE 0.9% 1,000 ML IV SCH ×3 (01:15→17:00)
[2020-03-31] MEDS: LEVOTHYROXINE 175 MCG TABLET PO SCH (04:58)
[2020-03-31] MEDS: METOPROLOL TARTRATE 25 MG TAB PO SCH ×4 (05:00→21:03)
[2020-03-31 05:46] LABS: ANION GAP 9 mmol/L (5-15); CALCIUM 8.6 mg/dL (8.5-10.1); CHLORIDE 111 mmol/L (98-107)
[2020-03-31] MEDS: INSULIN LISPRO 100 UNITS/ML, PEN SQ-INSULIN SCH ×4 (07:00→21:03)
[2020-03-31] MEDS: PSYLLIUM PACKET PO SCH (08:24)
[2020-03-31] MEDS: HYDROCORTISONE CRM 1%, 30GM TP SCH ×2 (09:03→21:00)
[2020-03-31] MEDS: LOPERAMIDE 2 MG CAPSULE PO SCH ×2 (09:04→20:59)
[2020-03-31] MEDS: NYSTATIN TOPICAL POWDER 15GM TP SCH ×2 (09:04→21:00)
[2020-03-31] MEDS: MULTIVITS,STRESS FORMULA 1 TABLET PO SCH (09:04)
[2020-03-31] MEDS: DILTIAZEM 240 MG CAP.ER.24H PO SCH (09:04)
[2020-03-31] MEDS: COLCHICINE 0.6 MG CAPSULE PO SCH ×2 (09:04→20:59)
[2020-03-31] MEDS: OMEGA-3/FISH OIL CAPSULE PO SCH ×2 (09:04→21:03)
[2020-03-31] MEDS: ZINC SULFATE 220 MG CAPSULE PO SCH (09:04)
[2020-03-31] MEDS: CHOLECALCIFEROL 5,000u TAB PO SCH (09:04)
[2020-03-31] MEDS: TAMSULOSIN 0.4 MG CAP.ER.24H PO SCH (09:04)
[2020-03-31] MEDS: ASCORBIC ACID 500 MG TABLET PO SCH ×2 (09:05→16:28)
[2020-03-31] MEDS: FERROUS SULFATE 325 MG TABLET PO SCH (09:05)
[2020-03-31] MEDS: DIGOXIN 0.25 MG TABLET PO SCH (09:05)
[2020-03-31] MEDS: INSULIN GLARGINE 100 UNITS/ML, PEN SQ-INSULIN SCH ×2 (09:06→20:59)
[2020-03-31] MEDS: NYSTATIN CRM 15GM TP SCH ×2 (09:06→21:02)
[2020-03-31] MEDS ORDERED: TPN PER PHARMACY MC SCH (15:30)
[2020-03-31] MEDS: CHOLESTYRAMINE LIGHT 4GM PACKET PO SCH ×2 (16:00→21:03)
[2020-03-31] MEDS: ONDANSETRON ODT 4 MG PO PRN (16:56)
[2020-03-31] MEDS: POTASSIUM CHLORIDE 20 MEQ TAB.ER.PRT PO SCH (16:56)
[2020-03-31] MEDS: RIVAROXABAN 20 MG TABLET PO SCH (17:00)
[2020-03-31] MEDS: ATORVASTATIN 40 MG TABLET PO SCH (20:59)
[2020-04-01] MEDS: SODIUM CHLORIDE 0.9% 1,000 ML IV SCH (00:58)
[2020-04-01 01:06] VITALS: BP 97/61
[2020-04-01 05:00] VITALS: BP 92/59
[2020-04-01] MEDS: LEVOTHYROXINE 175 MCG TABLET PO SCH (05:02)
[2020-04-01] MEDS: METOPROLOL TARTRATE 25 MG TAB PO SCH ×4 (05:14→21:47)
[2020-04-01 05:37] LABS: BASOPHILS % (AUTO) 1 % (0-1); EOSINOPHILS % (AUTO) 9 % (1-7); LYMPHOCYTES % (AUTO) 27 % (22-44); MEAN CORPUSCULAR HGB CONC 32.8 g/dL (33.2-36.2); MEAN PLATELET VOLUME 8.3 fL (7.4-10.4); MONOCYTES % (AUTO) 9 % (2-9); NEUTROPHILS % (AUTO) 55 % (42-75); PLATELET COUNT 186 x10^3/uL (130-400); RED BLOOD COUNT 3.92 x10^6/uL (4.38-5.82); RED CELL DISTRIBUTION WIDTH 17.3 % (9.4-14.8)
[2020-04-01 05:40] LABS: MD NO
[2020-04-01 05:42] LABS: ALANINE AMINOTRANSFERASE 81 U/L (12-78); ALBUMIN 2.6 g/dL (3.4-5.0); ANION GAP 6 mmol/L (5-15); CALCIUM 8.3 mg/dL (8.5-10.1); CHLORIDE 113 mmol/L (98-107); CREATININE 1.53 mg/dL (0.7-1.3)
[2020-04-01 05:50] LABS: ALKALINE PHOSPHATASE 302 U/L (45-117); PREALBUMIN 15.3 mg/dL (20.0-40.0); TOTAL PROTEIN 6.8 g/dL (6.4-8.2); TRIGLYCERIDES 141 mg/dL (50-200)
[2020-04-01] MEDS: INSULIN LISPRO 100 UNITS/ML, PEN SQ-INSULIN SCH ×4 (07:00→21:45)
[2020-04-01 07:58] VITALS: BP 119/76
[2020-04-01] MEDS: ASCORBIC ACID 500 MG TABLET PO SCH ×2 (08:00→17:00)
[2020-04-01] MEDS: POTASSIUM CHLORIDE 20 MEQ TAB.ER.PRT PO SCH (08:00)
[2020-04-01] MEDS: DILTIAZEM 240 MG CAP.ER.24H PO SCH (08:28)
[2020-04-01] MEDS: COLCHICINE 0.6 MG CAPSULE PO SCH ×2 (08:28→21:24)
[2020-04-01] MEDS: DIGOXIN 0.25 MG TABLET PO SCH (08:29)
[2020-04-01] MEDS: CHOLESTYRAMINE LIGHT 4GM PACKET PO SCH (08:32)
[2020-04-01] MEDS: MULTIVITS,STRESS FORMULA 1 TABLET PO SCH (08:32)
[2020-04-01] MEDS: ZINC SULFATE 220 MG CAPSULE PO SCH (08:33)
[2020-04-01] MEDS: OMEGA-3/FISH OIL CAPSULE PO SCH ×2 (08:33→21:45)
[2020-04-01] MEDS: FERROUS SULFATE 325 MG TABLET PO SCH (08:33)
[2020-04-01] MEDS: CHOLECALCIFEROL 5,000u TAB PO SCH (08:36)
[2020-04-01] MEDS: INSULIN GLARGINE 100 UNITS/ML, PEN SQ-INSULIN SCH ×2 (08:45→21:24)
[2020-04-01] MEDS: LOPERAMIDE 2 MG CAPSULE PO SCH ×2 (08:46→21:24)
[2020-04-01] MEDS: NYSTATIN TOPICAL POWDER 15GM TP SCH ×2 (08:46→21:25)
[2020-04-01] MEDS: TAMSULOSIN 0.4 MG CAP.ER.24H PO SCH (08:46)
[2020-04-01] MEDS: NYSTATIN CRM 15GM TP SCH ×2 (08:46→21:25)
[2020-04-01] MEDS: HYDROCORTISONE CRM 1%, 30GM TP SCH ×2 (08:46→21:45)
[2020-04-01] MEDS ORDERED: FILTER, DISP 1.2 MICRON FOR TPN/PVN IV PRN (10:00)
[2020-04-01 13:52] VITALS: BP 115/60
[2020-04-01] MEDS ORDERED: FAT EMUL IV SCH (17:00)
[2020-04-01] MEDS ORDERED: DEXTROSE 10% 500 ML IV PRN (17:00)
[2020-04-01] MEDS ORDERED: [UNRECOGNIZED DRUG - OTHER] IV SCH (17:00)
[2020-04-01] MEDS ORDERED: AMINO ACID 10% IV SCH (17:00)
[2020-04-01] MEDS ORDERED: SMOF TPN IV SCH (17:00)
[2020-04-01] MEDS ORDERED: DEXTROSE 50%, 50ML SYRINGE IVPush PRN (17:00)
[2020-04-01] MEDS ORDERED: DEXTROSE 70% IV SCH (17:00)
[2020-04-01] MEDS: RIVAROXABAN 20 MG TABLET PO SCH (17:31)
[2020-04-01 21:13] VITALS: BP 100/66
[2020-04-01 21:13] LABS: HCT (SEDRATE) 33.5 % (39.2-51.8)
[2020-04-01] MEDS: ATORVASTATIN 40 MG TABLET PO SCH (21:24)
[2020-04-01] MEDS: ACETAMINOPHEN 325 MG TABLET PO PRN (21:27)
[2020-04-02 00:54] VITALS: BP 116/73
[2020-04-02 05:05] VITALS: BP 94/61
[2020-04-02] MEDS: LEVOTHYROXINE 175 MCG TABLET PO SCH (05:07)
[2020-04-02] MEDS: METOPROLOL TARTRATE 25 MG TAB PO SCH ×4 (05:09→21:45)
[2020-04-02 05:42] LABS: ANION GAP 9 mmol/L (5-15); CALCIUM 8.4 mg/dL (8.5-10.1); CHLORIDE 110 mmol/L (98-107)
[2020-04-02 05:43] LABS: CREATININE 1.43 mg/dL (0.7-1.3)
[2020-04-02] MEDS: INSULIN LISPRO 100 UNITS/ML, PEN SQ-INSULIN SCH ×4 (07:00→21:00)
[2020-04-02] MEDS: OMEGA-3/FISH OIL CAPSULE PO SCH ×3 (07:25→21:45)
[2020-04-02] MEDS: ASCORBIC ACID 500 MG TABLET PO SCH ×2 (07:25→16:17)
[2020-04-02] MEDS: ZINC SULFATE 220 MG CAPSULE PO SCH (07:26)
[2020-04-02] MEDS: CHOLECALCIFEROL 5,000u TAB PO SCH (07:26)
[2020-04-02] MEDS: MULTIVITS,STRESS FORMULA 1 TABLET PO SCH (07:26)
[2020-04-02 07:56] VITALS: BP 110/68
[2020-04-02] MEDS ORDERED: METRONIDAZOLE PMX 500MG/100ML 100 ML IV SCH (08:00)
[2020-04-02] MEDS ORDERED: CIPROFLOXACIN LACTATE 200 MG in DEXTROSE 5% 100 ML IV SCH (08:00)
[2020-04-02] MEDS: INSULIN GLARGINE 100 UNITS/ML, PEN SQ-INSULIN SCH ×2 (09:21→22:05)
[2020-04-02] MEDS: LOPERAMIDE 2 MG CAPSULE PO SCH ×2 (09:22→21:45)
[2020-04-02] MEDS: TAMSULOSIN 0.4 MG CAP.ER.24H PO SCH (09:22)
[2020-04-02] MEDS: COLCHICINE 0.6 MG CAPSULE PO SCH (09:22)
[2020-04-02] MEDS: NYSTATIN CRM 15GM TP SCH ×2 (09:23→21:45)
[2020-04-02] MEDS: HYDROCORTISONE CRM 1%, 30GM TP SCH ×2 (09:23→21:46)
[2020-04-02] MEDS: DIGOXIN 0.25 MG TABLET PO SCH (09:23)
[2020-04-02] MEDS: DILTIAZEM 240 MG CAP.ER.24H PO SCH (09:23)
[2020-04-02] MEDS: NYSTATIN TOPICAL POWDER 15GM TP SCH ×2 (09:23→21:45)
[2020-04-02 11:51] LABS: CLOSTRIDIUM DIFFICILE ANTIGEN NEGATIVE; CLOSTRIDIUM DIFFICILE TOXIN NEGATIVE (Negative); CRYPTOSPORIDIUM ANTIGEN Negative (Negative)
[2020-04-02] MEDS ORDERED: POTASSIUM CHLORIDE 20 MEQ TAB.ER.PRT PO ONE ×2 (13:30→16:00)
[2020-04-02 14:20] VITALS: BP 111/72
[2020-04-02] MEDS: RIVAROXABAN 20 MG TABLET PO SCH (16:26)
[2020-04-02 18:35] VITALS: BP 118/75
[2020-04-02 21:43] VITALS: BP 109/73
[2020-04-02] MEDS: ATORVASTATIN 40 MG TABLET PO SCH (21:45)
[2020-04-03 01:07] VITALS: BP 100/66
[2020-04-03] MEDS: ACETAMINOPHEN 325 MG TABLET PO PRN ×2 (01:07→22:04)
[2020-04-03] MEDS: METOPROLOL TARTRATE 25 MG TAB PO SCH ×3 (04:00→17:51)
[2020-04-03] MEDS: LEVOTHYROXINE 175 MCG TABLET PO SCH (05:55)
[2020-04-03 05:56] VITALS: BP 106/67
[2020-04-03] MEDS: INSULIN LISPRO 100 UNITS/ML, PEN SQ-INSULIN SCH ×4 (07:00→20:50)
[2020-04-03] MEDS: FERROUS SULFATE 325 MG TABLET PO SCH (07:03)
[2020-04-03] MEDS: OMEGA-3/FISH OIL CAPSULE PO SCH ×2 (07:03→20:45)
[2020-04-03] MEDS: ASCORBIC ACID 500 MG TABLET PO SCH ×2 (07:03→15:22)
[2020-04-03] MEDS: MULTIVITS,STRESS FORMULA 1 TABLET PO SCH (07:04)
[2020-04-03] MEDS: ZINC SULFATE 220 MG CAPSULE PO SCH (07:04)
[2020-04-03] MEDS: CHOLECALCIFEROL 5,000u TAB PO SCH (07:04)
[2020-04-03] MEDS: INSULIN GLARGINE 100 UNITS/ML, PEN SQ-INSULIN SCH ×2 (08:50→22:01)
[2020-04-03] MEDS: LOPERAMIDE 2 MG CAPSULE PO SCH ×2 (08:51→20:45)
[2020-04-03] MEDS: TAMSULOSIN 0.4 MG CAP.ER.24H PO SCH (08:51)
[2020-04-03] MEDS: NYSTATIN TOPICAL POWDER 15GM TP SCH ×2 (08:51→20:52)
[2020-04-03] MEDS: DIGOXIN 0.25 MG TABLET PO SCH (08:51)
[2020-04-03] MEDS: DILTIAZEM 240 MG CAP.ER.24H PO SCH (08:51)
[2020-04-03] MEDS: HYDROCORTISONE CRM 1%, 30GM TP SCH ×2 (08:51→20:53)
[2020-04-03 08:52] VITALS: BP 125/75
[2020-04-03] MEDS: NYSTATIN CRM 15GM TP SCH ×2 (08:52→22:30)
[2020-04-03] MEDS ORDERED: POTASSIUM CHLORIDE 20 MEQ TAB.ER.PRT PO ONE (15:00)
[2020-04-03] MEDS ORDERED: MAGNESIUM SULFATE PMX 2GM/50ML 50 ML IV ONE (15:00)
[2020-04-03 15:06] VITALS: BP 116/77
[2020-04-03] MEDS: ONDANSETRON ODT 4 MG PO SCH (15:21)
[2020-04-03] MEDS: RIVAROXABAN 20 MG TABLET PO SCH (15:22)
[2020-04-03] MEDS: LACTOBACILLUS CHEW TABLET PO SCH ×2 (15:22→20:45)
[2020-04-03 18:25] VITALS: BP 114/67
[2020-04-03] MEDS: ATORVASTATIN 40 MG TABLET PO SCH (20:45)
[2020-04-03] MEDS: MIRTAZAPINE 15 MG TABLET PO SCH (20:45)
[2020-04-03] MEDS: MELATONIN 5 MG TABLET PO SCH (20:45)
[2020-04-04 01:49] VITALS: BP 115/76
[2020-04-04] MEDS: METOPROLOL TARTRATE 25 MG TAB PO SCH ×5 (01:51→23:55)
[2020-04-04] MEDS: ONDANSETRON ODT 4 MG PO SCH ×2 (01:51→16:24)
[2020-04-04 05:34] LABS: BASOPHILS % (AUTO) 1 % (0-1); EOSINOPHILS % (AUTO) 9 % (1-7); LYMPHOCYTES % (AUTO) 27 % (22-44); MEAN CORPUSCULAR HEMOGLOBIN 28.2 pg (27.5-34.5); MEAN CORPUSCULAR HGB CONC 33.1 g/dL (33.2-36.2); MEAN PLATELET VOLUME 8.2 fL (7.4-10.4); MONOCYTES % (AUTO) 8 % (2-9); NEUTROPHILS % (AUTO) 54 % (42-75); PLATELET COUNT 192 x10^3/uL (130-400); RED BLOOD COUNT 3.98 x10^6/uL (4.38-5.82); RED CELL DISTRIBUTION WIDTH 17.9 % (9.4-14.8)
[2020-04-04 05:35] LABS: ALBUMIN 2.6 g/dL (3.4-5.0); ANION GAP 8 mmol/L (5-15); CALCIUM 8.8 mg/dL (8.5-10.1); CHLORIDE 112 mmol/L (98-107)
[2020-04-04 05:39] LABS: ALANINE AMINOTRANSFERASE 113 U/L (12-78); ALKALINE PHOSPHATASE 321 U/L (45-117); BILIRUBIN,TOTAL 0.8 mg/dL (0.2-1.0); CREATININE 1.35 mg/dL (0.7-1.3); TOTAL PROTEIN 6.6 g/dL (6.4-8.2)
[2020-04-04 06:02] LABS: MD NO
[2020-04-04 06:23] VITALS: BP 96/59
[2020-04-04] MEDS: LACTOBACILLUS CHEW TABLET PO SCH ×4 (06:26→21:57)
[2020-04-04] MEDS: LEVOTHYROXINE 175 MCG TABLET PO SCH (06:26)
[2020-04-04] MEDS: INSULIN LISPRO 100 UNITS/ML, PEN SQ-INSULIN SCH ×4 (07:00→21:00)
[2020-04-04] MEDS: HYDROCORTISONE CRM 1%, 30GM TP SCH ×2 (09:00→21:57)
[2020-04-04] MEDS: OMEGA-3/FISH OIL CAPSULE PO SCH ×3 (09:00→21:00)
[2020-04-04] MEDS: NYSTATIN CRM 15GM TP SCH ×2 (09:00→21:58)
[2020-04-04] MEDS: NYSTATIN TOPICAL POWDER 15GM TP SCH ×2 (09:00→21:58)
[2020-04-04 09:37] VITALS: BP 118/72
[2020-04-04] MEDS: MULTIVITS,STRESS FORMULA 1 TABLET PO SCH (09:39)
[2020-04-04] MEDS: ASCORBIC ACID 500 MG TABLET PO SCH ×2 (09:39→16:24)
[2020-04-04] MEDS: TAMSULOSIN 0.4 MG CAP.ER.24H PO SCH (09:40)
[2020-04-04] MEDS: DILTIAZEM 240 MG CAP.ER.24H PO SCH (09:40)
[2020-04-04] MEDS: ZINC SULFATE 220 MG CAPSULE PO SCH (09:40)
[2020-04-04] MEDS: LOPERAMIDE 2 MG CAPSULE PO SCH ×2 (09:41→21:56)
[2020-04-04] MEDS: CHOLECALCIFEROL 5,000u TAB PO SCH (09:41)
[2020-04-04] MEDS: DIGOXIN 0.25 MG TABLET PO SCH (09:41)
[2020-04-04] MEDS: INSULIN GLARGINE 100 UNITS/ML, PEN SQ-INSULIN SCH ×2 (09:51→21:55)
[2020-04-04 12:42] VITALS: BP 113/73
[2020-04-04 13:38] LABS: BILIRUBIN, DIRECT 0.3 mg/dL (0.1-0.2)
[2020-04-04] MEDS: RIVAROXABAN 20 MG TABLET PO SCH (16:27)
[2020-04-04 18:49] VITALS: BP 105/68
[2020-04-04 21:25] VITALS: BP 157/98
[2020-04-04] MEDS: MIRTAZAPINE 15 MG TABLET PO SCH (21:55)
[2020-04-04] MEDS: MELATONIN 5 MG TABLET PO SCH (21:56)
[2020-04-04] MEDS: ATORVASTATIN 40 MG TABLET PO SCH (21:57)
[2020-04-04] MEDS: ACETAMINOPHEN 325 MG TABLET PO PRN (23:56)
[2020-04-05 02:00] VITALS: BP 110/65
[2020-04-05] MEDS: ONDANSETRON ODT 4 MG PO SCH ×3 (02:30→22:37)
[2020-04-05] MEDS: LACTOBACILLUS CHEW TABLET PO SCH ×4 (05:26→21:58)
[2020-04-05] MEDS: LEVOTHYROXINE 175 MCG TABLET PO SCH (05:26)
[2020-04-05] MEDS: METOPROLOL TARTRATE 25 MG TAB PO SCH ×4 (05:26→23:55)
[2020-04-05] MEDS: INSULIN LISPRO 100 UNITS/ML, PEN SQ-INSULIN SCH ×4 (07:00→21:00)
[2020-04-05 07:47] VITALS: BP 101/65
[2020-04-05] MEDS: FERROUS SULFATE 325 MG TABLET PO SCH (09:00)
[2020-04-05] MEDS: OMEGA-3/FISH OIL CAPSULE PO SCH ×2 (09:00→21:00)
[2020-04-05] MEDS: ASCORBIC ACID 500 MG TABLET PO SCH ×3 (09:33→17:00)
[2020-04-05] MEDS: TAMSULOSIN 0.4 MG CAP.ER.24H PO SCH (09:34)
[2020-04-05] MEDS: LOPERAMIDE 2 MG CAPSULE PO SCH ×2 (09:34→21:58)
[2020-04-05] MEDS: DIGOXIN 0.25 MG TABLET PO SCH (09:34)
[2020-04-05] MEDS: MULTIVITS,STRESS FORMULA 1 TABLET PO SCH (09:34)
[2020-04-05] MEDS: DILTIAZEM 240 MG CAP.ER.24H PO SCH (09:34)
[2020-04-05] MEDS: ZINC SULFATE 220 MG CAPSULE PO SCH (09:35)
[2020-04-05] MEDS: NYSTATIN CRM 15GM TP SCH ×2 (09:35→21:00)
[2020-04-05] MEDS: HYDROCORTISONE CRM 1%, 30GM TP SCH ×2 (09:35→21:00)
[2020-04-05] MEDS: NYSTATIN TOPICAL POWDER 15GM TP SCH ×2 (09:35→21:00)
[2020-04-05] MEDS: CHOLECALCIFEROL 5,000u TAB PO SCH (09:35)
[2020-04-05] MEDS: INSULIN GLARGINE 100 UNITS/ML, PEN SQ-INSULIN SCH ×2 (09:48→21:58)
[2020-04-05 11:23] VITALS: BP 119/76
[2020-04-05 13:58] VITALS: BP 131/64
[2020-04-05] MEDS: RIVAROXABAN 20 MG TABLET PO SCH (16:44)
[2020-04-05 17:58] VITALS: BP 109/74
[2020-04-05 18:43] VITALS: BP 114/74
[2020-04-05] MEDS: MIRTAZAPINE 15 MG TABLET PO SCH (21:58)
[2020-04-05] MEDS: MELATONIN 5 MG TABLET PO SCH (21:58)
[2020-04-05] MEDS: ATORVASTATIN 40 MG TABLET PO SCH (21:59)
[2020-04-06] MEDS: METOPROLOL TARTRATE 25 MG TAB PO SCH ×3 (06:05→17:03)
[2020-04-06] MEDS: LACTOBACILLUS CHEW TABLET PO SCH ×4 (06:05→20:42)
[2020-04-06] MEDS: LEVOTHYROXINE 175 MCG TABLET PO SCH (06:05)
[2020-04-06 06:36] LABS: ANION GAP 9 mmol/L (5-15); CALCIUM 8.5 mg/dL (8.5-10.1); CHLORIDE 112 mmol/L (98-107); CREATININE 1.45 mg/dL (0.7-1.3)
[2020-04-06 06:46] VITALS: BP 119/64
[2020-04-06] MEDS: INSULIN LISPRO 100 UNITS/ML, PEN SQ-INSULIN SCH ×4 (07:00→20:34)
[2020-04-06] MEDS: ZINC SULFATE 220 MG CAPSULE PO SCH (07:37)
[2020-04-06] MEDS: MULTIVITS,STRESS FORMULA 1 TABLET PO SCH (07:37)
[2020-04-06] MEDS: DILTIAZEM 240 MG CAP.ER.24H PO SCH (07:37)
[2020-04-06] MEDS: INSULIN GLARGINE 100 UNITS/ML, PEN SQ-INSULIN SCH ×2 (07:37→20:42)
[2020-04-06] MEDS: TAMSULOSIN 0.4 MG CAP.ER.24H PO SCH (07:38)
[2020-04-06] MEDS: FERROUS SULFATE 325 MG TABLET PO SCH (07:38)
[2020-04-06] MEDS: LOPERAMIDE 2 MG CAPSULE PO SCH ×2 (07:38→20:43)
[2020-04-06] MEDS: DIGOXIN 0.25 MG TABLET PO SCH (07:38)
[2020-04-06] MEDS: OMEGA-3/FISH OIL CAPSULE PO SCH ×2 (07:39→20:47)
[2020-04-06] MEDS: ASCORBIC ACID 500 MG TABLET PO SCH ×2 (07:39→17:03)
[2020-04-06] MEDS: CHOLECALCIFEROL 5,000u TAB PO SCH (07:40)
[2020-04-06] MEDS: HYDROCORTISONE CRM 1%, 30GM TP SCH ×2 (07:40→20:48)
[2020-04-06] MEDS: NYSTATIN CRM 15GM TP SCH ×2 (07:41→20:48)
[2020-04-06] MEDS: NYSTATIN TOPICAL POWDER 15GM TP SCH ×2 (07:41→20:48)
[2020-04-06] MEDS: ACETAMINOPHEN 325 MG TABLET PO PRN (11:16)
[2020-04-06] MEDS: ONDANSETRON ODT 4 MG PO SCH ×2 (11:16→20:43)
[2020-04-06 13:35] VITALS: BP 100/60
[2020-04-06] MEDS: CYCLOBENZAPRINE 10 MG TABLET PO PRN (17:05)
[2020-04-06] MEDS: RIVAROXABAN 20 MG TABLET PO SCH (17:05)
[2020-04-06] MEDS ORDERED: DIAZEPAM 5 MG/ML, 2ML IV ONE (17:30)
[2020-04-06] MEDS ORDERED: DIAZEPAM 5 MG/ML, 2ML IV PRN (17:30)
[2020-04-06] MEDS ORDERED: DIAZEPAM 5 MG/ML, 10ML VIAL IV ONE (18:30)
[2020-04-06 18:56] VITALS: BP 104/68
[2020-04-06] MEDS: MIRTAZAPINE 15 MG TABLET PO SCH (20:42)
[2020-04-06] MEDS: MELATONIN 5 MG TABLET PO SCH (20:44)
[2020-04-06] MEDS: ATORVASTATIN 40 MG TABLET PO SCH (20:47)
[2020-04-06 21:15] LABS: MICROSCOPIC INDICATED
[2020-04-07] MEDS: LEVOTHYROXINE 175 MCG TABLET PO SCH (05:31)
[2020-04-07] MEDS: LACTOBACILLUS CHEW TABLET PO SCH ×4 (05:31→21:27)
[2020-04-07] MEDS: METOPROLOL TARTRATE 25 MG TAB PO SCH ×5 (05:32→23:35)
[2020-04-07 06:40] VITALS: BP 106/59
[2020-04-07] MEDS: INSULIN LISPRO 100 UNITS/ML, PEN SQ-INSULIN SCH ×4 (07:00→21:29)
[2020-04-07] MEDS: ASCORBIC ACID 500 MG TABLET PO SCH ×2 (08:00→17:00)
[2020-04-07] MEDS: OMEGA-3/FISH OIL CAPSULE PO SCH ×2 (09:00→21:29)
[2020-04-07] MEDS: FERROUS SULFATE 325 MG TABLET PO SCH (09:00)
[2020-04-07] MEDS ORDERED: CEFDINIR 300 MG CAPSULE PO SCH (09:00)
[2020-04-07] MEDS: INSULIN GLARGINE 100 UNITS/ML, PEN SQ-INSULIN SCH ×2 (10:16→21:28)
[2020-04-07] MEDS: DILTIAZEM 240 MG CAP.ER.24H PO SCH (10:18)
[2020-04-07] MEDS: ZINC SULFATE 220 MG CAPSULE PO SCH (10:19)
[2020-04-07] MEDS: LOPERAMIDE 2 MG CAPSULE PO SCH ×2 (10:20→21:29)
[2020-04-07] MEDS: TAMSULOSIN 0.4 MG CAP.ER.24H PO SCH (10:20)
[2020-04-07] MEDS: MULTIVITS,STRESS FORMULA 1 TABLET PO SCH (10:21)
[2020-04-07] MEDS: DIGOXIN 0.25 MG TABLET PO SCH (10:21)
[2020-04-07] MEDS: CHOLECALCIFEROL 5,000u TAB PO SCH (10:22)
[2020-04-07] MEDS: NYSTATIN TOPICAL POWDER 15GM TP SCH ×2 (10:30→21:30)
[2020-04-07] MEDS: HYDROCORTISONE CRM 1%, 30GM TP SCH ×2 (10:30→21:29)
[2020-04-07] MEDS: NYSTATIN CRM 15GM TP SCH ×2 (10:30→21:30)
[2020-04-07] MEDS: ONDANSETRON ODT 4 MG PO SCH ×2 (10:31→21:27)
[2020-04-07 10:48] VITALS: BP 111/66
[2020-04-07] MEDS: CYCLOBENZAPRINE 10 MG TABLET PO PRN (11:33)
[2020-04-07 12:59] VITALS: BP 120/63
[2020-04-07] MEDS: RIVAROXABAN 20 MG TABLET PO SCH (17:05)
[2020-04-07 19:00] VITALS: BP 123/70
[2020-04-07] MEDS: MIRTAZAPINE 15 MG TABLET PO SCH (21:27)
[2020-04-07] MEDS: ATORVASTATIN 40 MG TABLET PO SCH (21:27)
[2020-04-07] MEDS: MELATONIN 5 MG TABLET PO SCH (21:27)
[2020-04-07] MEDS: CEFDINIR 300 MG CAPSULE PO SCH (21:27)
[2020-04-08 00:08] VITALS: BP 105/70
[2020-04-08] MEDS: CYCLOBENZAPRINE 10 MG TABLET PO PRN ×2 (01:13→23:50)
[2020-04-08] MEDS: LACTOBACILLUS CHEW TABLET PO SCH ×4 (05:42→21:01)
[2020-04-08] MEDS: LEVOTHYROXINE 175 MCG TABLET PO SCH (05:42)
[2020-04-08] MEDS: METOPROLOL TARTRATE 25 MG TAB PO SCH ×4 (05:43→23:51)
[2020-04-08] MEDS: INSULIN LISPRO 100 UNITS/ML, PEN SQ-INSULIN SCH ×4 (07:45→21:02)
[2020-04-08] MEDS: ACETAMINOPHEN 325 MG TABLET PO PRN ×2 (07:45→23:50)
[2020-04-08 08:00] VITALS: BP 125/73
[2020-04-08] MEDS: ASCORBIC ACID 500 MG TABLET PO SCH ×3 (08:00→17:30)
[2020-04-08 08:04] LABS: BASOPHILS % (AUTO) 1 % (0-1); EOSINOPHILS % (AUTO) 4 % (1-7); LYMPHOCYTES % (AUTO) 13 % (22-44); MEAN CORPUSCULAR HEMOGLOBIN 28.2 pg (27.5-34.5); MEAN CORPUSCULAR HGB CONC 32.8 g/dL (33.2-36.2); MEAN PLATELET VOLUME 7.9 fL (7.4-10.4); MONOCYTES % (AUTO) 11 % (2-9); NEUTROPHILS % (AUTO) 70 % (42-75); PLATELET COUNT 231 x10^3/uL (130-400); RED BLOOD COUNT 4.18 x10^6/uL (4.38-5.82); RED CELL DISTRIBUTION WIDTH 18.1 % (9.4-14.8)
[2020-04-08 08:20] LABS: ANION GAP 9 mmol/L (5-15); CALCIUM 8.8 mg/dL (8.5-10.1); CHLORIDE 110 mmol/L (98-107); CREATININE 1.49 mg/dL (0.7-1.3); MD NO
[2020-04-08] MEDS: NYSTATIN TOPICAL POWDER 15GM TP SCH ×3 (09:00→21:05)
[2020-04-08] MEDS: OMEGA-3/FISH OIL CAPSULE PO SCH ×2 (09:00→09:32)
[2020-04-08] MEDS: CHOLECALCIFEROL 5,000u TAB PO SCH (09:31)
[2020-04-08] MEDS: CEFDINIR 300 MG CAPSULE PO SCH (09:31)
[2020-04-08] MEDS: DILTIAZEM 240 MG CAP.ER.24H PO SCH (09:31)
[2020-04-08] MEDS: DIGOXIN 0.25 MG TABLET PO SCH (09:32)
[2020-04-08] MEDS: LOPERAMIDE 2 MG CAPSULE PO SCH ×2 (09:40→21:01)
[2020-04-08] MEDS: INSULIN GLARGINE 100 UNITS/ML, PEN SQ-INSULIN SCH ×2 (09:40→21:02)
[2020-04-08] MEDS: TAMSULOSIN 0.4 MG CAP.ER.24H PO SCH (09:40)
[2020-04-08] MEDS: ZINC SULFATE 220 MG CAPSULE PO SCH (09:40)
[2020-04-08] MEDS: MULTIVITS,STRESS FORMULA 1 TABLET PO SCH (09:40)
[2020-04-08] MEDS: NYSTATIN CRM 15GM TP SCH ×2 (12:00→21:05)
[2020-04-08] MEDS: HYDROCORTISONE CRM 1%, 30GM TP SCH ×2 (12:00→21:05)
[2020-04-08] MEDS: ONDANSETRON ODT 4 MG PO SCH ×2 (12:01→23:50)
[2020-04-08 12:07] VITALS: BP 134/79
[2020-04-08 12:56] VITALS: BP 128/77
[2020-04-08] MEDS ORDERED: CEFTRIAXONE PMX 1GM/50ML 50 ML IV SCH (16:00)
[2020-04-08] MEDS: RIVAROXABAN 20 MG TABLET PO SCH (17:30)
[2020-04-08 17:31] VITALS: BP 103/67
[2020-04-08 19:21] VITALS: BP 126/67
[2020-04-08] MEDS: MIRTAZAPINE 15 MG TABLET PO SCH (21:01)
[2020-04-08] MEDS: MELATONIN 5 MG TABLET PO SCH (21:01)
[2020-04-08] MEDS: ATORVASTATIN 40 MG TABLET PO SCH (21:01)
[2020-04-09 00:13] VITALS: BP 108/67
[2020-04-09 05:59] VITALS: BP 96/67
[2020-04-09] MEDS: LACTOBACILLUS CHEW TABLET PO SCH ×2 (06:00→09:34)
[2020-04-09] MEDS: LEVOTHYROXINE 175 MCG TABLET PO SCH (06:00)
[2020-04-09 06:04] LABS: BASOPHILS % (AUTO) 1 % (0-1); EOSINOPHILS % (AUTO) 6 % (1-7); LYMPHOCYTES % (AUTO) 18 % (22-44); MEAN CORPUSCULAR HEMOGLOBIN 28.1 pg (27.5-34.5); MEAN PLATELET VOLUME 8.3 fL (7.4-10.4); MONOCYTES % (AUTO) 9 % (2-9); NEUTROPHILS % (AUTO) 66 % (42-75); PLATELET COUNT 213 x10^3/uL (130-400); RED BLOOD COUNT 3.93 x10^6/uL (4.38-5.82); RED CELL DISTRIBUTION WIDTH 17.7 % (9.4-14.8)
[2020-04-09] MEDS: METOPROLOL TARTRATE 25 MG TAB PO SCH ×2 (06:04→09:33)
[2020-04-09 06:12] LABS: ANION GAP 7 mmol/L (5-15); CALCIUM 8.7 mg/dL (8.5-10.1); CHLORIDE 107 mmol/L (98-107)
[2020-04-09 06:13] LABS: MD NO
[2020-04-09 06:14] LABS: CREATININE 1.43 mg/dL (0.7-1.3)
[2020-04-09 07:12] VITALS: BP 135/83
[2020-04-09] MEDS: NYSTATIN CRM 15GM TP SCH (09:00)
[2020-04-09] MEDS: LOPERAMIDE 2 MG CAPSULE PO SCH ×2 (09:00→09:33)
[2020-04-09] MEDS: NYSTATIN TOPICAL POWDER 15GM TP SCH (09:00)
[2020-04-09] MEDS: INSULIN GLARGINE 100 UNITS/ML, PEN SQ-INSULIN SCH (09:31)
[2020-04-09] MEDS: INSULIN LISPRO 100 UNITS/ML, PEN SQ-INSULIN SCH ×2 (09:31→12:32)
[2020-04-09] MEDS: DIGOXIN 0.25 MG TABLET PO SCH (09:32)
[2020-04-09] MEDS: DILTIAZEM 240 MG CAP.ER.24H PO SCH (09:34)
[2020-04-09] MEDS: CHOLECALCIFEROL 5,000u TAB PO SCH (09:34)
[2020-04-09] MEDS: FERROUS SULFATE 325 MG TABLET PO SCH (09:34)
[2020-04-09] MEDS: HYDROCORTISONE CRM 1%, 30GM TP SCH (09:41)
[2020-04-09] MEDS: ACETAMINOPHEN 325 MG TABLET PO PRN (09:45)
[2020-04-09] MEDS: TAMSULOSIN 0.4 MG CAP.ER.24H PO SCH (09:45)
[2020-04-09] MEDS: MULTIVITS,STRESS FORMULA 1 TABLET PO SCH (09:45)
[2020-04-09] MEDS: ZINC SULFATE 220 MG CAPSULE PO SCH (09:45)
[2020-04-09] MEDS: ONDANSETRON ODT 4 MG PO SCH (12:32)
[2020-04-09] MEDS ORDERED: METO25TA35 PO (14:08)
[2020-04-09] MEDS ORDERED: CEFD300C37 PO (14:08)
[2020-04-09] MEDS ORDERED: LACT1CAP35 PO (14:08)
[2020-04-09] MEDS ORDERED: NYST15CR TP (14:08)
[2020-04-09] MEDS ORDERED: FERR-51 PO (14:08)
[2020-04-09] MEDS ORDERED: DIGO250T3 PO (14:08)
[2020-04-09] MEDS ORDERED: NYST15PO2 TP (14:08)
[2020-04-09] MEDS ORDERED: DILT240C55 PO (14:08)
== END 2020-04-09 14:32 | DRG 622 ==
LOC: ED 12:18 → EDIP 14:52 → 3N 17:21 → 5SO 03-16 14:56 → 3N 03-23 06:51
PROVIDERS: ADMIT Family Medicine; ATTEND Hospitalist
PROC: 0JBR0ZZ Excision of Left Foot Subcutaneous Tissue and Fascia, Open Approach (ICD-10-PCS; principal; 2020-02-25 07:30)
PROC: 0T9B70Z Drainage of Bladder with Drainage Device, Via Natural or Artificial Opening (ICD-10-PCS; 2020-03-14)
PROC: 02HV33Z Insertion of Infusion Device into Superior Vena Cava, Percutaneous Approach (ICD-10-PCS; 2020-04-01)
PROC: B5181ZA Fluoroscopy of Superior Vena Cava using Low Osmolar Contrast, Guidance (ICD-10-PCS; 2020-04-01)
PROC: B548ZZA Ultrasonography of Superior Vena Cava, Guidance (ICD-10-PCS; 2020-04-01)
DX: E11.621 Type 2 diabetes mellitus with foot ulcer (principal); J96.01 Acute respiratory failure with hypoxia; E43 Unspecified severe protein-calorie malnutrition; L03.116 Cellulitis of left lower limb; N39.0 Urinary tract infection, site not specified; L02.612 Cutaneous abscess of left foot; I48.20 Chronic atrial fibrillation, unspecified; E11.52 Type 2 diabetes mellitus with diabetic peripheral angiopathy with gangrene; D68.69 Other thrombophilia; A07.2 Cryptosporidiosis; I48.92 Unspecified atrial flutter; Z68.42 Body mass index [BMI] 45.0-49.9, adult; N17.9 Acute kidney failure, unspecified; L40.9 Psoriasis, unspecified; M17.10 Unilateral primary osteoarthritis, unspecified knee; T50.1X5A Adverse effect of loop [high-ceiling] diuretics, initial encounter; Z66 Do not resuscitate; Z79.01 Long term (current) use of anticoagulants; Z87.891 Personal history of nicotine dependence; Z91.14 Patient's other noncompliance with medication regimen; Z91.19 Patient's noncompliance with other medical treatment and regimen; Z95.5 Presence of coronary angioplasty implant and graft; N18.30 Chronic kidney disease, stage 3 unspecified; I25.2 Old myocardial infarction; L30.9 Dermatitis, unspecified; I25.10 Atherosclerotic heart disease of native coronary artery without angina pectoris; I12.9 Hypertensive chronic kidney disease with stage 1 through stage 4 chronic kidney disease, or unspecified chronic kidney disease; G47.30 Sleep apnea, unspecified; E87.70 Fluid overload, unspecified; E87.6 Hypokalemia; E66.01 Morbid (severe) obesity due to excess calories; Z20.828 Contact with and (suspected) exposure to other viral communicable diseases; Z88.2 Allergy status to sulfonamides; E11.65 Type 2 diabetes mellitus with hyperglycemia; E11.22 Type 2 diabetes mellitus with diabetic chronic kidney disease; E03.9 Hypothyroidism, unspecified; B96.20 Unspecified Escherichia coli [E. coli] as the cause of diseases classified elsewhere; D50.9 Iron deficiency anemia, unspecified; D53.9 Nutritional anemia, unspecified; E11.628 Type 2 diabetes mellitus with other skin complications; L97.529 Non-pressure chronic ulcer of other part of left foot with unspecified severity
CPT/HCPCS: 36415; 73564; 73620; 82438; 84302; 84999; 87046; 87338; 87427; 87806; 89055; 96365; 96375; 99285; C8929; 36573; 71045; 74176; 80048; 80053; 80069; 80162; 81001; 81003; 82248; 82306; 82533; 82607; 82710; 82728; 82784; 82962; 83036; 83516; 83540; 83550; 83605; 83631; 83735; 83970; 83993; 84100; 84134; 84439; 84443; 84478; 85025; 85651; 86140; 86255; 87015; 87040; 87070; 87075; 87077; 87086; 87147; 87186; 87205; 87206; 87252; 87324; 87328; 87329; 87496; 87635; 93005; 93922; 97162; G0378; J0690; J0696; J1100; J1940; J2405; J2543; J2704; J3010; J3360; J3370; J3480; Q0162; Q9957; A9575; C1751; G0475; J1160; J1815; J2270; J3475; J7030; J7040; J7050; J7120

== ENCOUNTER 2020-08-18 14:03 | Inpatient (IN) | payer BC ==
[~2020-08-18] VITALS: Ht 175.3 cm; Wt 127.6 kg
[~2020-08-18 14:03] MED LIST changes: +ATOR40TA78 PO; +CEFD300C37 PO; +DIGO250T3 PO; +DILT240C55 PO; +FERR-51 PO; +FURO20TA3 PO; +LACT1CAP35 PO; +LEVO175T5 PO; -LIDOCAINE PF 2%, 5ML ONE; +LISI-170 PO; +METF500T17 PO; +METO25TA35 PO; +NYST15CR TP; +NYST15PO2 TP; +RIVA20TA PO
--- NOTE | 2020-08-18 14:32 | NUR ---
BIB BY [facility] FROM HOME FOR INCREASING SOB ESPECIALLY WHILE LYING FLAT & NASAL CONGESTION X 1 WEEK. "MY HEAD COLD GOT DOWN INTO MY LUNGS." DENIES FEVERS, MUSCLE ACES EMS REPORTS RONCHI AND UPPER WHEEZES- GIVEN ALBUTEROL THEN DUO NEB WITHOUT IMPROVEMENT RECENT HOSPITALIZATION-TAKEN OFF LASIX ROOM AIR: 85%, NO HOME O2 DROPLET PLUS PRECAUTIONS PLACED
[2020-08-18] MEDS ORDERED: SODIUM CHLORIDE FLUSH 10ML SYR IVF ONE (15:00)
--- NOTE | 2020-08-18 15:10 | NUR ---
CXR AT BEDSIDE
--- NOTE | 2020-08-18 15:19 | NUR ---
PIV PLACED FROM WHICH BASIC LABS, LACTATE AND 1 SET OF BLOOD CULTURES DRAWN
[2020-08-18 15:30] LABS: MEAN CORPUSCULAR HEMOGLOBIN 29.7 pg (27.5-34.5); MEAN CORPUSCULAR HGB CONC 32.9 g/dL (33.2-36.2); MEAN PLATELET VOLUME 7.9 fL (7.4-10.4); PLATELET COUNT 223 x10^3/uL (130-400); RED BLOOD COUNT 3.38 x10^6/uL (4.38-5.82); RED CELL DISTRIBUTION WIDTH 18.6 % (9.4-14.8)
[2020-08-18 15:32] LABS: MD YES
[2020-08-18 15:39] LABS: ALANINE AMINOTRANSFERASE 14 U/L (12-78); ALBUMIN 3.1 g/dL (3.4-5.0); ANION GAP 9 mmol/L (5-15); CHLORIDE 115 mmol/L (98-107); CREATININE 1.35 mg/dL (0.7-1.3)
[2020-08-18 15:43] LABS: ALKALINE PHOSPHATASE 90 U/L (45-117); BILIRUBIN,TOTAL 0.6 mg/dL (0.2-1.0); TOTAL PROTEIN 6.4 g/dL (6.4-8.2); TROPONIN I < 0.015 ng/mL (0.000-0.045)
[2020-08-18] MEDS ORDERED: AZITHROMYCIN 500 MG in SODIUM CHLORIDE 0.9% 250 ML IV ONE (16:00)
[2020-08-18] MEDS ORDERED: CEFTRIAXONE PMX 1GM/50ML 50 ML IVPB ONE (16:00)
[2020-08-18 16:08] LABS: EOS#(MANUAL) 2.24 x10^3/uL (0.0-0.4); EOS% (MANUAL) 28 % (1-7); LYMPH#(MANUAL) 1.52 x10^3/uL (1-3.4); LYMPHS% (MANUAL) 19 % (22-44); MONOS#(MANUAL) 0.32 x10^3/uL (0.3-2.7); MONOS% (MANUAL) 4 % (2-9); SEG#(MANUAL) 3.92 x10^3/uL (1.8-6.8); SEGS% (MANUAL) 49 % (42-75)
[2020-08-18 16:10] LABS: ANISOCYTOSIS 1+; ROULEAUX 1+
[2020-08-18 16:11] LABS: <PLATELET ESTIMATE> ADEQUATE; <PLT MORPHOLOGY> NORMAL PLT MORPH
[2020-08-18] MEDS ORDERED: CEFTRIAXONE PMX 1GM/50ML 50 ML ONE (16:30)
--- NOTE | 2020-08-18 16:33 | NUR ---
LAB AT BEDSIDE FOR 2ND SET OF BLOOD CULTURES- TO START ABX AFTER ORTHOPEDIC NURSE ASKED ABOUT ORDERING BNP, CLARIFIED NO IVF NEEDED PATIENT SIGNIFICANTLY FLUID OVERLOADED
[2020-08-18] MEDS ORDERED: MIRT15TA3 PO (16:45)
[2020-08-18] MEDS ORDERED: ATOR-2 PO (16:45)
[2020-08-18] MEDS ORDERED: DILT180T PO (16:45)
[2020-08-18] MEDS ORDERED: DIGO125T85 PO (16:45)
[2020-08-18] MEDS ORDERED: METO25TA35 PO (16:46)
--- NOTE | 2020-08-18 16:48 | NUR ---
ATTEMPTED TO CALL REPORT-INPATIENT RN UNAVAILABLE- TO CALL BACK WHEN AVAILABLE
[2020-08-18] MEDS ORDERED: BISACODYL 10 MG SUPP PR PRN (17:00)
[2020-08-18] MEDS ORDERED: hydrALAzine 20 MG/ML, 1ML IVPush PRN (17:00)
[2020-08-18] MEDS ORDERED: HEPARIN 5,000 UNITS/ML, 1ML SQ SCH (17:00)
[2020-08-18] MEDS ORDERED: ONDANSETRON 2MG/ML, 2ML IVPush PRN (17:00)
--- NOTE | 2020-08-18 17:33 | NUR ---
report to randi courtney
[2020-08-18 18:43] VITALS: BP 164/95
[2020-08-18 20:40] VITALS: BP 128/72
[2020-08-18] MEDS: FUROSEMIDE 40 MG/4 ML IV SCH (20:44)
[2020-08-18] MEDS: METOPROLOL TARTRATE 25 MG TAB PO SCH ×2 (20:44→21:00)
[2020-08-18] MEDS: MIRTAZAPINE 15 MG TAB.RAPDIS PO SCH (22:46)
[2020-08-18] MEDS: ATORVASTATIN 40 MG TABLET PO SCH (22:47)
[2020-08-18] MEDS: NYSTATIN CRM 15GM TP SCH (22:47)
[2020-08-18] MEDS: FLUTICASONE NASAL SPRAY 16GM NAS SCH (22:47)
[2020-08-19 00:05] VITALS: BP 138/76
[2020-08-19] MEDS: LEVOTHYROXINE 175 MCG TABLET PO SCH (05:23)
[2020-08-19 06:01] LABS: BASOPHILS % (AUTO) 1 % (0-1); EOSINOPHILS % (AUTO) 28 % (1-7); LYMPHOCYTES % (AUTO) 19 % (22-44); MEAN CORPUSCULAR HGB CONC 33.4 g/dL (33.2-36.2); MONOCYTES % (AUTO) 5 % (2-9); NEUTROPHILS % (AUTO) 46 % (42-75); PLATELET COUNT 209 x10^3/uL (130-400); RED BLOOD COUNT 3.33 x10^6/uL (4.38-5.82); RED CELL DISTRIBUTION WIDTH 18.9 % (9.4-14.8)
[2020-08-19 06:12] LABS: ANION GAP 8 mmol/L (5-15); CALCIUM 8.7 mg/dL (8.5-10.1); CHLORIDE 113 mmol/L (98-107); CREATININE 1.31 mg/dL (0.7-1.3)
[2020-08-19 06:25] LABS: MD SCAN
[2020-08-19 07:18] VITALS: BP 163/90
[2020-08-19] MEDS: FUROSEMIDE 40 MG/4 ML IV SCH ×2 (07:58→17:49)
[2020-08-19] MEDS: FLUTICASONE NASAL SPRAY 16GM NAS SCH ×2 (07:58→20:06)
[2020-08-19] MEDS: LORATADINE 10 MG TABLET PO SCH (08:00)
[2020-08-19] MEDS: DIGOXIN 0.125 MG TABLET PO SCH (08:01)
[2020-08-19] MEDS: METOPROLOL TARTRATE 25 MG TAB PO SCH ×3 (08:01→20:06)
[2020-08-19] MEDS: NYSTATIN CRM 15GM TP SCH ×2 (08:02→20:07)
[2020-08-19] MEDS: SENNA/DOCUSATE TABLET PO SCH (08:03)
[2020-08-19] MEDS: RIVAROXABAN 20 MG TABLET PO SCH (10:54)
[2020-08-19 13:34] VITALS: BP 117/76
[2020-08-19] MEDS ORDERED: OMNIPAQUE 350 MG/ML, 100ML BOTTLE ONE (17:41)
[2020-08-19 18:47] VITALS: BP 133/84
[2020-08-19 20:05] VITALS: BP 149/76
[2020-08-19] MEDS: ATORVASTATIN 40 MG TABLET PO SCH (20:06)
[2020-08-19] MEDS: MIRTAZAPINE 15 MG TAB.RAPDIS PO SCH (20:07)
[2020-08-20 01:16] VITALS: BP 120/80
[2020-08-20 05:08] LABS: BASOPHILS % (AUTO) 1 % (0-1); EOSINOPHILS % (AUTO) 25 % (1-7); LYMPHOCYTES % (AUTO) 24 % (22-44); MEAN CORPUSCULAR HEMOGLOBIN 30.1 pg (27.5-34.5); MEAN CORPUSCULAR HGB CONC 33.5 g/dL (33.2-36.2); MONOCYTES % (AUTO) 5 % (2-9); NEUTROPHILS % (AUTO) 44 % (42-75); PLATELET COUNT 232 x10^3/uL (130-400); RED BLOOD COUNT 3.68 x10^6/uL (4.38-5.82); RED CELL DISTRIBUTION WIDTH 18.5 % (9.4-14.8)
[2020-08-20 05:16] LABS: ANION GAP 7 mmol/L (5-15); CALCIUM 8.7 mg/dL (8.5-10.1); CHLORIDE 107 mmol/L (98-107)
[2020-08-20 05:17] LABS: CREATININE 1.49 mg/dL (0.7-1.3)
[2020-08-20] MEDS: LEVOTHYROXINE 175 MCG TABLET PO SCH (05:38)
[2020-08-20 05:45] LABS: MD SCAN
[2020-08-20] MEDS: SENNA/DOCUSATE TABLET PO SCH (07:41)
[2020-08-20] MEDS: FUROSEMIDE 40 MG/4 ML IV SCH ×2 (07:42→16:20)
[2020-08-20] MEDS: LORATADINE 10 MG TABLET PO SCH (07:42)
[2020-08-20] MEDS: DIGOXIN 0.125 MG TABLET PO SCH (07:42)
[2020-08-20] MEDS: METOPROLOL TARTRATE 25 MG TAB PO SCH ×3 (07:42→21:16)
[2020-08-20 07:43] VITALS: BP 132/82
[2020-08-20] MEDS: NYSTATIN CRM 15GM TP SCH ×2 (07:43→21:16)
[2020-08-20] MEDS: RIVAROXABAN 20 MG TABLET PO SCH (07:43)
[2020-08-20] MEDS: FLUTICASONE NASAL SPRAY 16GM NAS SCH ×2 (10:52→21:21)
[2020-08-20] MEDS: DOXYCYCLINE 100MG CAP PO SCH ×2 (11:29→21:16)
[2020-08-20] MEDS: CEFTRIAXONE PMX 2GM/50ML 50 ML IVPB SCH (11:29)
[2020-08-20 13:52] VITALS: BP 127/88
[2020-08-20 19:33] VITALS: BP 113/79
[2020-08-20] MEDS: ATORVASTATIN 40 MG TABLET PO SCH (21:15)
[2020-08-20] MEDS: MIRTAZAPINE 15 MG TAB.RAPDIS PO SCH (21:16)
[2020-08-20] MEDS: ACETAMINOPHEN 325 MG TABLET PO PRN (21:31)
[2020-08-21 00:40] VITALS: BP 114/82
[2020-08-21] MEDS: LEVOTHYROXINE 175 MCG TABLET PO SCH (05:20)
[2020-08-21 07:20] VITALS: BP 129/81
[2020-08-21] MEDS: METOPROLOL TARTRATE 25 MG TAB PO SCH (08:04)
[2020-08-21] MEDS: RIVAROXABAN 20 MG TABLET PO SCH (08:04)
[2020-08-21] MEDS: DOXYCYCLINE 100MG CAP PO SCH (08:04)
[2020-08-21] MEDS: FUROSEMIDE 40 MG/4 ML IV SCH (08:04)
[2020-08-21] MEDS: LORATADINE 10 MG TABLET PO SCH (08:04)
[2020-08-21] MEDS: SENNA/DOCUSATE TABLET PO SCH (08:05)
[2020-08-21] MEDS: DIGOXIN 0.125 MG TABLET PO SCH (08:10)
[2020-08-21] MEDS: FLUTICASONE NASAL SPRAY 16GM NAS SCH (08:11)
[2020-08-21] MEDS: NYSTATIN CRM 15GM TP SCH (09:00)
[2020-08-21] MEDS: CEFTRIAXONE PMX 2GM/50ML 50 ML IVPB SCH (11:09)
[2020-08-21] MEDS ORDERED: DOXY100C2 PO (12:22)
[2020-08-21] MEDS ORDERED: CEFD300C37 PO (12:22)
[2020-08-21] MEDS ORDERED: FURO40TA6 PO (12:23)
[2020-08-21 12:33] VITALS: BP 134/77
[2020-08-21] MEDS: ACETAMINOPHEN 325 MG TABLET PO PRN (14:37)
== END 2020-08-21 15:55 | disposition home health service (06) | DRG 291 ==
LOC: ED 16:13 → EDIP 16:48 → 3N 18:09
PROVIDERS: ADMIT Hospitalist; ATTEND Hospitalist
DX: I13.0 Hypertensive heart and chronic kidney disease with heart failure and stage 1 through stage 4 chronic kidney disease, or unspecified chronic kidney disease (principal); J96.01 Acute respiratory failure with hypoxia; I50.23 Acute on chronic systolic (congestive) heart failure; J15.9 Unspecified bacterial pneumonia; D68.69 Other thrombophilia; E11.22 Type 2 diabetes mellitus with diabetic chronic kidney disease; Z20.822 Contact with and (suspected) exposure to COVID-19; Z88.2 Allergy status to sulfonamides; N18.9 Chronic kidney disease, unspecified; I48.91 Unspecified atrial fibrillation; I25.10 Atherosclerotic heart disease of native coronary artery without angina pectoris; D50.9 Iron deficiency anemia, unspecified; E03.9 Hypothyroidism, unspecified; I25.2 Old myocardial infarction; J45.909 Unspecified asthma, uncomplicated; Z79.01 Long term (current) use of anticoagulants; Z79.899 Other long term (current) drug therapy
CPT/HCPCS: 36415; 71045; 71275; 80048; 80053; 83036; 83605; 83880; 84443; 84484; 85025; 85379; 87040; 93005; 96365; 96375; 99285; G0378; J0456; J0696; J1940; Q9967; J7050; U0003